=== PATIENT | female | born 1970 | race Caucasian/White ===

== ENCOUNTER 2025-02-23 21:49 | Emergency (ER) | payer MEDICARE, BC, MEDICAID, SELFPAY ==
--- OUTSIDE RECORDS SUMMARY | 2025-02-20 11:40 | XMS_ITS | Encounter Summary ---
Author Organization [employer] Address [address] [place] [address] Care Team Providers Care Supervisor Airplane Flight Attendant Name Role Phone Jo Alcocer Primary Care Provider [phone] Encounter Details Date Type Department Care Team (Latest Contact Info) Description 02/20/2025 11:40 AM EST [facility] Visit [facility] [place] [address] [place] [phone] Priyanka Buenrostro MD [address] [place] [address] Type 1 diabetes mellitus with diabetic polyneuropathy (CMS/HCC V24, CMS/HCC V28) (Primary Dx) Social History Tobacco Use Types Packs/Day Years Used Date Smoking Tobacco: Former Cigarettes 1 0.5 0 06/07/2021 - 12/07/2021 Smokeless Tobacco: Never Alcohol Use Standard Drinks/Week Comments Never 0 (1 standard drink = 0.6 oz pur e alcohol) Interpersonal Safety Answer Date Record ed Physical Abuse Unrecognized value 11/27/2024 Verbal Abuse Unrecognized value 11/27/2024 Comments Unknown Sex and Gender Information Value Date Recorded Sex Assigned at Female 05/11/2024 9:27 PM EST Legal Sex Female 10:19 AM EST Gender Identity Female 05/11/2024 9:27 PM EST Sexual Orientation Straight 05/11/2024 9: 27 PM EST documented as of this encounter Plan of Treatment Upcoming Encounters Date Type Department Care Team (Late Contact Info) Description 03/21/2025 10:30 AM EST Office Visit Rehabilitation Medicine - [place] [address] [place] [phone] Gisel Garcia MD [address] [place] [address] 04/03/2025 11:00 AM EST Office Visit Internal Medicine - [place] [address] [place] [phone] Jo Alcocer PA [address] [place], [place] [id number] 04/13/2025 11:00 AM EST Appointment [facility] [address] [place] [phone] Levon Cuevas MD [address] [facility] [address] [place] [address] 05/05/2025 11:40 AM EST [facility] - [address] [place] [phone] Priyanka Buenrostro MD [address] [place] [address] 06/29/2025 11:25 AM EDT Office Visit Pulmonology - [place] [address] [facility] [address] [place] [phone] Tanya Pineda, DAHIANA [address] [place] [address] documented as of this encounter Goals Goal Patient Goal Type Associated Problems Recent Progress Patient-Stated? Author Autogenera juanito Goal Care Plan Autogenerated Problem No Janice Irby documented as of this encounter Visit Diagnoses Diagnosis Type 1 diabetes mellitus with diabetic polyneuropathy ([facility] V24, [facility] V28)- Primary documented in this encounter Additional Health Concerns Active Problems Noted Date Diagnosed Date Autogenerated Problem 12/06/2024 Assessment Noted Time PHQ-9 Depression Total Score: 21 025 10:50 AM EDT A fall risk assessment has been complete d for the patient 09/08/2024 10:45 AM EDT documented as of this encounter Care Teams Supervisor Airplane Flight Attendant Relationship Specialty Start Date End Date Jo Alcocer PA [address] [place] [address] PCP - General Family Medicine 04/14/24 documented as of this encounter
[2025-02-23 21:57] VITALS: BP 119/57; PULSE 87; RESP 20; TEMP 36.4; O2SAT 97; BMI 21.1
[2025-02-23 21:58] VITALS: BP 136/72; PULSE 84; O2SAT 99
[2025-02-23 22:17] LABS: MANUAL DIFF FLAG NO
[2025-02-23 22:19] LABS: Hematocrit 35.6 % (37.0-47.0); Hemoglobin 11.7 g/dl (12.0-16.0); Imm Gran Abs Auto 0.01 X10*3/uL (0.00-0.03); Imm Gran Pct Auto 0.2 % (0.0-0.4); Lymphocytes Absolute Auto 2.5 X10*3/uL (1.2-4.9); Mean Corpuscular HGB Conc 32.9 g/dl (31.0-35.0); Mean Corpuscular Hemoglobin 31.5 pg (27.0-33.0); Mean Corpuscular Volume 95.7 fL (80.0-98.0); NRBC Abs Auto 0.000 X10*3/uL (0.0-0.012); NRBC Pct Auto 0.0 /100WBC (0.0-0.2); Platelet Count 186 X10*3/uL (160-400); Red Blood Count 3.72 X10*6/uL (4.20-5.50); White Blood Count 5.7 X10*3/uL (4.8-10.8)
[2025-02-23 22:32] LABS: Alanine Aminotransferase 30 U/L (0-31); Albumin Level 4.0 g/dL (3.5-5.0); Alkaline Phosphatase 81 U/L (39-117); Anion Gap 13 (12-20); Aspartate Amino Transferase 36 U/L (5-31); Blood Urea Nitrogen 15 mg/dL (9-16); Calcium 8.9 mg/dL (8.4-10.2); Carbon Dioxide 32 mmol/L (22-29); Chloride 101 mmol/L (96-108); Creatinine Clr Calc Pharmacy 69.6; Estimated Glomerular Filt Rate > 60; Potassium 4.3 mmol/L (3.3-5.1); Sodium 142 mmol/L (135-145); Total Protein 6.4 g/dL (6.5-8.0)
[2025-02-23 22:39] LABS: NT Pro B Type Natriuretic Pept 535.1 pg/mL (<300)
[2025-02-24 00:41] VITALS: BP 134/62; PULSE 87; RESP 18; O2SAT 98
--- NOTE | 2025-02-24 02:15 | ED_ITS ---
HPI - Extremity Problem General Chief complaint: Extremity Problem Stated complaint: Bilat leg pain & swelling Time Seen by Provider: 02/24/25 02:13 Source: patient and EMS Mode of arrival: EMS Limitations: no limitations History of Present Illness ED Provider: William GUPTA HPI Narrative: The patient is a 55-year-old female presenting to the Emergency Department for progressively worsening bilateral lower-extremity swelling that began approximately one week ago. She reports the swelling was initially mild but ?blew up? overnight and has persisted despite leg elevation on an incline wedge while sleeping. She was evaluated yesterday at [facility], who advised her to re-initiate oral furosemide, which she had not taken in the last year. Patient reports a prescription was sent to her pharmacy but she used left over furosemide that she had in her house from 1 year ago. The patient states she has had no improvement from the oral Lasix over the last 24 hours, and presents to the ED stating that in the past she required IV Lasix and admission for similar episodes. Past cardiac history includes congestive heart failure secondary to mitral-valve regurgitation; she follows with cardiology at [facility] in [place]. She has been using the herbal supplement moringa for the past year to control her swelling as she is concerned Lasix nephrotoxicity. Patient reports switching from Lasix to Nakia was a care plan changed she discussed with her primary care nurse practitioner in [place]. The patient reports over the past week she has also been experiencing intermittent slight sharp left upper chest pain that typically improves with a baby aspirin, intermittent bilateral flank/side abdominal pain, and recent positive urinary ketones (patient checks at home). The patient reports feeling generally unwell and that everything seems not right. Related Data Allergies Allergy/AdvReac Type Severity Reaction Status Date / Time No Known Allergies Allergy Verified 02/23/25 22:01 Review of Systems 2 Review of Systems: Yes all other systems are reviewed and are negative [facility] Social History Social History Smoked in Last 30 Days: No Use of substances other than those prescribed or required for medical reasons: Yes Substance Use Type: Marijuana Advance Directives: No Advance Directives Information Provided: Yes Patient : No Physical Exam 2 Vital Signs: Vital Signs: Last Vital Signs Temp 97.6 F 02/23/25 21:57 Pulse 76 02/24/25 03:30 Resp 18 02/24/25 03:30 BP 134/66 02/24/25 03:30 Pulse Ox 98 02/24/25 03:30 O2 Del Method Room Air 02/24/25 03:30 BMI result Body Mass Index 21.1 CONSTITUTIONAL: The patient appears non-toxic, well nourished and in no acute distress. Vital signs as documented. HEAD: Atraumatic, normocephalic. EYES: EOMs grossly intact, pupils equal, conjunctiva clear, no exudate. ENT: Nares patent, no discharge. Airway patent, no audible stridor, visible mucosa is pink and moist without noted lesions. NECK: Trachea is midline, no obvious masses or gross abnormalities. CHEST: Symmetric movement, normal appearance. LUNGS: LS present and CTAB, no w/r/r. Non-labored work of breathing. CARDIAC: Regular Rhythm, S1/S2 appreciated, no murmurs, rubs or gallops. ABDOMEN: Abdomen soft and non-tender x4 quadrants, no palpable masses or organomegaly. : Deferred. EXTREMITIES: Normal tone, moves all extremities spontaneously without reported pain. There is 2+ pitting edema noted to the bilateral lower extremities to level of the proximal calf, no overlying erythema or warmth, no open injury, area of edema is tender, patient grimaces with palpation. No obvious acute injury or deformity noted. NEURO: Alert and oriented x3, CN II-XII appear grossly intact. Cerebellar Functioning grossly intact. No obvious sensory or motor deficits. Speech clear and appropriate. PSYCH: normal affect, appropriate eye contact, fluid speech, with appropriate response to questioning. No reported suicidality or homicidality. SKIN: Warm, dry, color appropriate, normal turgor. No rashes noted. Medications Administered Discontinued Medications Generic Name Dose Route Start Last Admin Trade Name Freq PRN Reason Stop Dose Admin Furosemide 40 mg 02/24/25 03:14 02/24/25 03:31 Furosemide 40 Mg/4 Ml Vial IVPUSH 02/24/25 03:15 40 mg ONCE ONE Administration Protocol Medical Decision Making Medical Decision Making MDM Narrative: 3:16 AM 02/24/2025 (Jose David GUPTA): The patient is a 55-year-old female presenting to the Emergency Department for progressively worsening bilateral lower-extremity swelling that began approximately one week ago. She reports the swelling was initially mild but ?blew up? overnight and has persisted despite leg elevation on an incline wedge while sleeping. She was evaluated yesterday at [facility], who advised her to re-initiate oral furosemide, which she had not taken in the last year. Patient reports a prescription was sent to her pharmacy but she used left over furosemide that she had in her house from 1 year ago. The patient states she has had no improvement from the oral Lasix over the last 24 hours, and presents to the ED stating that in the past she required IV Lasix and admission for similar episodes. Past cardiac history includes congestive heart failure secondary to mitral-valve regurgitation; she follows with cardiology at [facility] in [place]. She has been using the herbal supplement moringa for the past year to control her swelling as she is concerned Lasix nephrotoxicity. Patient reports switching from Lasix to Nakia was a care plan changed she discussed with her primary care nurse practitioner in [place]. The patient reports over the past week she has also been experiencing intermittent slight sharp left upper chest pain that typically improves with a baby aspirin, intermittent bilateral flank/side abdominal pain, and recent positive urinary ketones (patient checks at home). The patient reports feeling generally unwell and that everything seems not right. On exam patient has 2+ bilateral pitting edema, no overlying erythema or warmth. No asymmetric swelling. Lung sounds clear to auscultation throughout, no rales. The patient is labs demonstrate no leukocytosis, significant anemia, electrolyte abnormality, or ARTURO. The patient's proBNP is 535, no old for comparison. The exact cause of the patient's acute change in swelling is not entirely clear, however due to report of intermittent chest pain we will obtain an EKG and troponin. Additionally we will treat with IV Lasix and reassess. 4:46 AM 02/24/2025 (Jose David GUPTA): Patient's EKG is nonischemic, shows sinus rhythm with a rate of 74, no evidence of acute ischemia, no ST elevation, no ectopy. QTC 446. The patient's troponin is negative. The patient was treated with IV Lasix. Patient has been ambulating through the ED with a steady gait with the assistance of a walker, which she uses at home. At this time patient is normotensive, without tachycardia, tachypnea, hypoxia, fever, adventitious lung sounds, or laboratory evaluation indicating need for admission. The patient took her furosemide yesterday that was from last year, patient will be discharged with education to fill new prescription from [facility] and take the new tablets of furosemide for better effectiveness. Patient will be discharged with instructions to follow up with PCP for continued management of her edema. Admission/Observation Consideration of admission/observation: Escalation of care including admission/observation considered Lab Data MDM Lab Attestation statement: I reviewed the patient's lab results. 02/23/25 22:12 02/23/25 22:12 Labs: Lab Results 02/23/25 02/24/25 Range/Units 22:12 03:26 WBC 5.7 (4.8-10.8) X10*3/uL RBC 3.72 L (4.20-5.50) X10*6/uL Hgb 11.7 L (12.0-16.0) g/dl Hct 35.6 L (37.0-47.0) % MCV 95.7 (80.0-98.0) fL MCH 31.5 (27.0-33.0) pg MCHC 32.9 (31.0-35.0) g/dl RDW 13.5 (11.0-16.0) % Plt Count 186 (160-400) X10*3/uL MPV 11.6 (9.4-12.3) fL Immature Gran % (Auto) 0.2 (0.0-0.4) % Neut % (Auto) 47.0 (45-73) % Lymph % (Auto) 44.0 H (20-40) % Sunflower % (Auto) 5.3 (2-11) % Eos % (Auto) 2.6 (0-4) % Baso % (Auto) 0.9 (0-2) % Lymph # (Auto) 2.5 (1.2-4.9) X10*3/uL Sunflower # (Auto) 0.3 (0.1-1.2) X10*3/uL Eos # (Auto) 0.2 (0.0-0.4) X10*3/uL Baso # (Auto) 0.1 (0.0-0.2) X10*3/uL Abs Immat Gran (auto) 0.01 (0.00-0.03) X10*3/uL Absolute Neuts (auto) 2.7 (2.0-8.3) x10*3/uL Absolute Nucleated RBC 0.000 (0.0-0.012) X10*3/uL Nucleated RBC % (auto) 0.0 (0.0-0.2) /100WBC Sodium 142 (135-145) mmol/L Potassium 4.3 (3.3-5.1) mmol/L Chloride 101 (96-108) mmol/L Carbon Dioxide 32 H (22-29) mmol/L Anion Gap 13 (12-20) BUN 15 (9-16) mg/dL Creatinine 0.84 (0.5-1.4) mg/dL Estim Creat Clear Calc 69.6 Estimated GFR > 60 Random Glucose 193 H (60-115) mg/dL Calcium 8.9 (8.4-10.2) mg/dL Total Bilirubin 0.4 (0.0-1.0) mg/dL AST 36 H (5-31) U/L ALT 30 (0-31) U/L Alkaline Phosphatase 81 (39-117) U/L Troponin I High Sens 12.6 (<3.5-17.0) ng/L NT-Pro-B Natriuret Pep 535.1 H (<300) pg/mL Total Protein 6.4 L (6.5-8.0) g/dL Albumin 4.0 (3.5-5.0) g/dL Independent Interpretation I performed an independent interpretation of an: EKG (Sinus rhythm with a rate of 74, no evidence of acute ischemia, no ST elevation, no ectopy. QTC 446. There is no old for comparison.) External Record Review External record reviewed: Outpatient record Discharge Plan Discharge Clinical Impression: Lower extremity edema Patient Disposition: Home, Self-Care Instructions: Leg Edema (ED) Additional Instructions: Thank you for choosing [facility]'s Emergency Department for your care today. Thankfully your laboratory evaluation, EKG, cardiac enzymes, vital signs, and exam today are all reassuring. There was no evidence of retained fluid in your lungs. At this time there is no indication for admission to the hospital or continued ED observation, and it is safe to discharge you home. Your lower extremity edema was treated in the ED with IV furosemide (Lasix). Your swelling did not improve after taking your old furosemide tablets as instructed by [facility], it is very important that you fill the new prescription provided to you by [facility] and take 40 mg of new furosemide tablets daily for the next 3 days, instead of taking the old tablets in your home, to optimize effectiveness of the medication. After those 3 days please begin taking 20 mg Lasix daily. Please elevate your legs above heart level when sleeping, and for greater than half the day when awake. It is extremely important that you call to schedule an appointment to follow up with your primary care provider for re-evaluation of your swelling, and additional management of your furosemide. Please follow up with your primary care physician for re-evaluation, additional management of your symptoms, and continued preventative care. If you do not have a primary care physician, please call the [facility] at [phone] to establish a new primary care physician. While waiting to establish your new primary care physician, you can call our Walk[facility] at [phone] for non-emergency needs. Please return to the emergency department if you develop a severe or sudden change in your symptoms, a fever over 100.4 that does not improve with Tylenol or Ibuprofen, recurrent vomiting, or any other new or worsening symptoms or concerns. Print Language: Irish
--- NOTE | 2025-02-24 03:09 | PC.NURSE ---
pt ambulated to the bathroom with a slow and steady gait
--- NOTE | 2025-02-24 03:14 | ECG_ITS ---
Test Reason : FLUID RETENTION Blood Pressure : */* mmHG Vent. Rate : 74 BPM Atrial Rate : 74 BPM P-R Int : 122 ms QRS Dur : 78 ms QT Int : 402 ms P-R-T Axes : 63 74 63 degrees QTcB Int : 446 ms Normal sinus rhythm Normal ECG No previous ECGs available Referred By: William Gibson Electronically Signed By: Raza Appiah
[2025-02-24 03:30] VITALS: BP 134/66; PULSE 76; RESP 18; O2SAT 98
[2025-02-24] MEDS: Furosemide 40 MG/4 ML VIAL IVPUSH (03:31)
[2025-02-24 03:48] LABS: Troponin-I High Sensitivity 12.6 ng/L (<3.5-17.0)
--- OUTSIDE RECORDS SUMMARY | 2025-02-24 04:14 | XMS_ITS ---
Author Name [facility] Organization Unknown Results Test Name/Text Value Interpretation Date Range Source Potassium SerPl-sCnc 3.8 mmol/L 09/08/2024 3.5 - 5.1 [facility] BUN/Creat SerPl 16.0 09/08/2024 12 - 20 [facility] Glucose SerPl-mCnc 167.0 mg/dL Above high normal 09/08/2024 70 - 99 [facility] BUN SerPl-mCnc 16.0 mg/dL 09/08/2024 7 - 17 [facility] Chloride SerPl-sCnc 96.0 mmol/L Below low normal 09/08/2024 98 - 107 [facility] ALP SerPl-cCnc 106.0 unit/L Above high normal 09/08/2024 34 - 104 [facility] Sodium SerPl-sCnc 138.0 mmol/L 09/08/2024 135 - 14 5 [facility] Prot SerPl-mCnc 6.6 g/dL 09/08/2024 6.4 - 8.5 [facility] eGFRcr SerPlBld CKD-EPI 2020 68.0 mL/min/1.73m2 09/08/2024 - [facility] AST SerPl-cCnc 22.0 unit/L 09/08/2024 5 - 40 [facility] CO2 SerPl-sCnc 34.0 mmol/L Above high normal 09/08/2024 24 - 32 [facility] Bilirub SerPl-mCnc 0.4 mg/dL 09/08/2024 0.3 - 1 [facility] Calcium SerPl-mCnc 8.9 mg/dL 09/08/2024 8.4 - 10.2 [facility] ALT SerPl-cCnc 14.0 unit/L 09/08/2024 7 - 52 [facility] Creat SerPl-mCnc 1.0 mg/dL 09/08/2024 0.5 - 1 [facility] Albumin SerPl-mCnc 4.0 g/dL 09/08/2024 3.5 - 5 [facility] Anion Gap SerPl Calc-sCnc 8.0 09/08/2024 5 - 14 [facility] Color Ur Yellow 09/08/2024 - [facility] N Nitrite Ur Ql Negative 09/08/2024 - [facility] Clarity Ur Clear 09/08/2024 - [facility] Ketones Ur-mCnc Negative 09/08/2024 - [facility] pH Ur 5.0 pH Abnormal 09/08/2024 5 - 8 [facility] N Sp Gr Ur 1.01 09/08/2024 1.005 - 1.03 [facility] Leukocyte esterase Ur Ql Strip Trace Abnormal 09/08/2024 - [facility] Prot Ur Strip-mCnc Negative 09/08/2024 - [facility] Hgb Ur Ql Negative 09/08/2024 - [facility] N Glucose Ur Ql Negative 09/08/2024 - [facility] VLDLc SerPl Calc-mCnc 24.6 mg/dL Normal 06/03/2024 [facility] LDLc SerPl Calc-mCnc 44.0 mg/dL Below low normal 06/03/2024 50 - 130 [facility] Trigl SerPl-mCnc 123.0 mg/dL Normal 06/03/2024 - 150 [facility] Cholest SerPl-mCnc 114.0 mg/dL Normal 06/03/2024 0 - 200 [facility] HDLc SerPl-mCnc 45.0 mg/dL Normal 06/03/2024 37 - 92 [facility] Potassium SerPl-sCnc 4.0 mmol/L Normal 04/28/2024 3.5 - 5.1 [facility] Bilirub SerPl-mCnc 0.7 mg/dL Normal 04/28/2024 0.3 - 1 [facility] Calcium SerPl-mCnc 9.5 mg/dL Normal 04/28/2024 8.4 - 10.2 [facility] ALP SerPl-cCnc 114.0 unit/L Above high normal 04/28/2024 34 - 104 [facility] Albumin SerPl-mCnc 4.0 g/dL Normal 04/28/2024 3.5 - 5 [facility] Sodium SerPl-sCnc 142.0 mmol/L Normal 04/28/2024 135 - 14 5 [facility] AST SerPl-cCnc 23.0 unit/L Normal 04/28/2024 5 - 40 [facility] eGFRcr SerPlBld CKD-EPI 2020 68.0 mL/min/1.73m2 Normal 04/28/2024 - [facility] CO2 SerPl-sCnc 32.0 mmol/L Normal 04/28/2024 24 - 32 [facility] Creat SerPl-mCnc 1.0 mg/dL Normal 04/28/2024 0.5 - 1 [facility] Chloride SerPl-sCnc 101.0 mmol/L Normal 04/28/2024 98 - 107 [facility] Prot SerPl-mCnc 6.3 g/dL Below low normal 04/28/2024 6.4 - 8.5 [facility] Anion Gap SerPl-sCnc 9.0 Normal 04/28/2024 5 - 14 [facility] Glucose SerPl-mCnc 92.0 mg/dL Normal 04/28/2024 70 - 99 [facility] BUN/Creat SerPl 28.0 Above high normal 04/28/2024 12 - 20 [facility] ALT SerPl-cCnc 16.0 unit/L Normal 04/28/2024 7 - 52 [facility] BUN SerPl-mCnc 28.0 mg/dL Above high normal 04/28/2024 7 - 1 7 [facility] Basophils # Bld Auto 0.0 K/mcL Normal 04/28/2024 0 - 0.2 [facility] Lymphocytes # Bld Auto 3.4 K/mcL Above high normal 04/28/2024 1 - 3.2 [facility] Eosinophil # Bld Auto 0.3 K/mcL Normal 04/28/2024 0 - 0.5 [facility] Neutrophils/leuk NFr Bld Auto 35.6 % Below low normal 04/28/2024 44 - 74 [facility] PMV Bld Auto 10.9 FL Normal 04/28/2024 7.4 - 11.4 [facility] Basophils/leuk NFr Bld Auto 0.7 % Normal 04/28/2024 0 - 2 [facility] MCV RBC Auto 91.0 FL Normal 04/28/2024 78 - 100 [facility] Eosinophil/leuk NFr Bld Auto 3.9 % Normal 04/28/2024 0 - 6 [facility] RBC # Bld Auto 3.49 M/mcL Below low normal 04/28/2024 4.2 - 5.4 [facility] Hgb Bld-mCnc 10.8 g/dL Below low normal 04/28/2024 12.5 - 16 [facility] Hct VFr Bld Auto 31.7 % Below low normal 04/28/2024 37 - 47 [facility] Monocytes # Bld Auto 0.5 K/mcL Normal 04/28/2024 0 - 0.8 [facility] WBC # Bld Auto 6.6 K/mcL Normal 04/28/2024 4 - 10.5 [facility] RDW RBC Auto-Rto 14.2 % Normal 04/28/2024 12.1 - 16.2 [facility] MCH RBC Qn Auto 31.0 pcg Normal 04/28/2024 25 - 33 [facility] Lymphocytes/leuk NFr Bld Auto 51.8 % Above high normal 04/28/2024 20 - 48 [facility] Platelet # Bld Auto 259.0 K/mcL Normal 04/28/2024 150 - 450 [facility] Monocytes/leuk NFr Bld Auto 8.0 % Normal 04/28/2024 2 - 12 [facility] MCHC RBC Auto-mCnc 34.1 g/dL Normal 04/28/2024 32 - 36 [facility] Neutrophils # Bld Auto 2.4 K/mcL Normal 04/28/2024 1.8 - 7.8 [facility] History of Medication Use Medication Directions Dispensed Refills Start Date End Date Stat us insulin syringe,safety needle (BD SafetyGlide Insulin Syringe) 0.3 mL 31 gauge x 5/16 syringe 1 EA if needed (to inject insulin). Use to inject 1-4 times daily as directed 02/17/2025 active fluticasone furoate-vilanteroL (Breo Ellipta) 200-25 mcg/dose inhaler Inhale 1 puff by mouth 1 (one) time each day. 12/30/2024 active tiotropium (Spiriva Respimat) 2.5 mcg/actuation inhalation spray Inhale 2 puffs by mouth 1 (one) time each day. 12/30/2024 active glucagon 0.5 mg/0.1 mL auto-injector Inject 0.5 mg under the skin 1 (one) time if needed (Inject contents of pen subcutaneously in the upper arms, thighs, or buttocks for severe hypoglycemia, may repeat in 15 minutes as needed.) for up to 1 dose. 11/28/2024 active glucagon 0.5 mg/0.1 mL auto-injector Inject 0.5 mg under the skin 1 (one) time if needed (Inject contents of pen subcutaneously in the upper arms, thighs, or buttocks for severe hypoglycemia, may repeat in 15 minutes as needed.) for up to 1 dose. 11/28/2024 active glucose 4 gram chewable tablet Chew 4 tablets (16 g total) if needed for low blood sugar. 11/28/2024 active glucose 4 gram chewable tablet Chew 4 tablets (16 g total) if needed for low blood sugar. 11/28/2024 active varenicline tartrate (CHANTIX) 1 mg tablet TAKE 1 TABLET BY MOUTH 2 TIMES DAILY AFTER BREAKFAST AND DINNER WITH FULL GLASS OF WATER. 11/22/2024 active lidocaine (PF) 10 mg/mL (1 %) injection solution Take 2 mL by injection route. 10/26/2024 active triamcinolone acetonide 40 mg/mL suspension for injection Take 80 mg by injection route. 10/26/2024 active loteprednol (LOTEMAX) 0.5 % ophthalmic suspension 09/05/2024 active loteprednol (LOTEMAX) 0.5 % ophthalmic suspension 09/05/2024 active varenicline tartrate (CHANTIX) 1 mg tablet TAKE 1 TABLET BY MOUTH 2 TIMES DAILY AFTER BREAKFAST AND DINNER WITH FULL GLASS OF WATER. 08/21/2024 active HumaLOG U-100 Insulin 100 unit/mL injection by Other route. 08/16/2024 active HumaLOG U-100 Insulin 100 unit/mL injection by Other route. 08/16/2024 active albuterol HFA (PROAIR HFA ; PROVENTIL HFA ; VENTOLIN HFA) 90 mcg/actuation inhaler INHALE 2 PUFFS BY MOUTH EVERY 6 HOURS NEEDED FOR WHEEZE 08/13/2024 active albuterol HFA (PROAIR HFA ; PROVENTIL HFA ; VENTOLIN HFA) 90 mcg/actuation inhaler INHALE 2 PUFFS BY MOUTH EVERY 6 HOURS NEEDED FOR WHEEZE 08/13/2024 active promethazine (PHENERGAN) 25 mg tablet TAKE 1 TABLET (25 MG TOTAL) BY MOUTH EVERY 8 (EIGHT) HOURS IF NEEDED FOR NAUSEA. 08/12/2024 active food supplemt, lactose-reduced (Boost) 0.04 gram- 1 kcal/mL liquid Take 1 Bottle by mouth 1 (one) time each day. 05/05/2024 active nut.tx.gluc intol,lf,soy-fiber (Glucerna 1.5 Bijan) 0.08-1.5 gram-kcal/mL liquid Take 1 Bottle by mouth 1 (one) time each day. 05/05/2024 active umeclidinium (Incruse Ellipta) 62.5 mcg/actuation inhalation Inhale 1 puff by mouth 1 (one) time each day. 05/03/2024 active amoxicillin-clavula dyana (AUGMENTIN) 875-125 mg per tablet Take 1 tablet by mouth 2 (two) times a day for 7 days. 04/28/2024 active food supplemt, lactose-reduced (Boost High Protein) 0.06 gram- 1 kcal/mL liquid Take 1 Dose by mouth 2 (two) times a day if needed (for nutritional supplementation). 04/28/2024 active fluticasone propionate (FLONASE) 50 mcg/actuation nasal spray ADMINISTER 2 SPRAYS INTO EACH NOSTRIL 2 (TWO) TIMES A DAY. SHAKE GENTLY. BEFORE FIRST USE, PRIME PUMP. AFTER USE, CLEAN TIP AND REPLACE CAP. 03/31/2024 active omeprazole (PriLOSEC) [address] capsule Take 1 capsule (20 mg total) by mouth 2 (two) times a day. Do not crush or chew. 03/23/2024 active omeprazole (PriLOSEC) [address] capsule Take 1 capsule (20 mg total) by mouth 2 (two) times a day. Do not crush or chew. 03/23/2024 active promethazine (PHENERGAN) 25 mg suppository Insert 1 suppository (25 mg total) into the rectum every 6 (six) hours if needed for nausea or vomiting. 03/23/2024 active promethazine (PHENERGAN) 25 mg suppository Insert 1 suppository (25 mg total) into the rectum every 6 (six) hours if needed for nausea or vomiting. 03/23/2024 active lisinopriL (PRINIVIL,ZESTRIL) 2.5 mg tablet TAKE ONE TABLET BY MOUTH DAILY AT 9 AM 02/29/2024 03/29/19 25 aborted albuterol HFA (PROAIR HFA ; PROVENTIL HFA ; VENTOLIN HFA) 90 mcg/actuation inhaler Inhale 2 puffs by mouth every 6 (six) hours if needed for wheezing. 02/17/2024 active fluticasone propionate (FLONASE) 50 mcg/actuation nasal spray Administer 2 sprays into each nostril 2 (two) times a day. Shake gently. Before first use, prime pump. After use, clean tip and replace cap. 02/17/2024 active ipratropium-albuter oL (DUONEB) 0.5-2.5 mg/3 mL nebulizer solution Take 3 mL by nebulization 4 (four) times a day. 02/17/2024 active tiotropium (Spiriva Respimat) 2.5 mcg/actuation inhalation spray Inhale 2 puffs by mouth 1 (one) time each day. 02/17/2024 active varenicline (CHANTIX) 1 mg tablet Take 1 tablet (1 mg total) by mouth 2 (two) times daily after breakfast and dinner. Take with full glass of water. 02/17/2024 active Sutab 1.479-0.188- 0.225 gram tablet TAKE 12 TABLETS BY MOUTH 2 (TWO) TIMES A DAY. 02/15/2024 active lidocaine (PF) 10 mg/mL (1 %) injection solution Take 2 mL by injection route. 01/14/2024 active triamcinolone acetonide 40 mg/mL suspension for injection Take 80 mg by injection route. 01/14/2024 active nicotine polacrilex (COMMIT) [address] 1 Lozenge inside cheek every 2 hours as needed for Smoking cessation (no more then 20pieces in 24 hours). Directions for Use: One piece every 1 to 2 hours with a maximum of 20 pieces per 24-hour period Do not chew or swallow; allow to dissolve slowly between cheek and gum (~20 to 30 minutes); 11/16/2023 03/29/19 25 aborted pregabalin (LYRICA) 300 mg capsule Take 1 capsule (300 mg total) by mouth at bedtime. 11/13/2023 active pregabalin (LYRICA) 300 mg capsule Take 1 capsule (300 mg total) by mouth at bedtime. 11/13/2023 active torsemide (DEMADEX) 20 mg tablet Take 1 Tablet by mouth daily for 360 days. 07/20/2023 active ferrous sulfate 325 mg (65 mg elemental iron) tablet Take 1 Tablet by mouth daily. 06/09/2023 active clotrimazole (LOTRIMIN) 1 % cream APPLY TWICE A DAY FOR 2 WEEKS 05/01/2023 03/29/19 25 aborted fluticasone furoate-vilanteroL (BREO ELLIPTA) 200-25 mcg/dose inhaler Inhale 1 puff by mouth 1 (one) time each day. 05/01/2023 active albuterol 2.5 mg /3 mL (0.083 %) nebulizer solution Take 1 Vial by nebulization every 6 hours as needed for Wheezing, Shortness of Breath or Cough for up to 180 days. 10/01/2022 active albuterol 2.5 mg /3 mL (0.083 %) nebulizer solution Take 1 Vial by nebulization every 6 hours as needed for Wheezing, Shortness of Breath or Cough for up to 180 days. 10/01/2022 active pravastatin (PRAVACHOL) 40 mg tablet Take 1 Tablet by mouth daily. 05/12/2022 active glucagon (Baqsimi) 3 mg/actuation nasal spray by Nasal route. 12/05/2021 active Glucagon HCl, rDNA, (GlucaGen HypoKit) 1 mg injection ADMINISTER 1 ML INTRAMUSCULARLY ONCE A DAY DIRECTED (GLUCAGON NOT COVERED BY INS) 03/21/2020 active methadone HCl (METHADONE, BULK, MISC) 74 mg. 09/22/2018 03/29/19 25 aborted insulin aspart (NovoLOG) 100 unit/mL injection See Instructions, 100 - 149 2 u 150 - 199 4 u 200 - 249 6 u 250 - 299 8 u 300 - 349 10 u 350 - 399 12 u, # 10 mL, 0 Refills, Maintenance, 04/29/17 12:38:04, Injection 04/29/2017 03/29/19 25 aborted amoxicillin 875 mg-potassium clavulanate 125 mg tablet TAKE 1 TABLET BY MOUTH TWICE A DAY FOR 7 DAYS 10/27/19 25 completed Dulera 200 mcg-5 mcg/actuation HFA aerosol inhaler INHALE 2 PUFFS BY MOUTH 2 TIMES A DAY 10/27/19 25 completed torsemide 20 mg tablet TAKE ONE TABLET BY MOUTH DAILY AT 9 AM 10/27/19 25 completed varenicline tartrate 1 mg tablet TAKE 1 TABLET BY MOUTH 2 TIMES DAILY AFTER BREAKFAST AND DINNER WITH FULL GLASS OF WATER. 10/27/19 25 completed amoxicillin 500 mg-potassium clavulanate 125 mg tablet TAKE 1 TABLET BY MOUTH THREE TIMES A DAY FOR 10 DAYS 01/14/20 24 completed amoxicillin 500 mg-potassium clavulanate 125 mg tablet TAKE 1 TABLET BY MOUTH THREE TIMES A DAY FOR 10 DAYS 01/14/20 24 completed cephalexin 500 mg capsule TAKE 1 CAPSULE BY MOUTH TWICE A DAY FOR 10 DAYS 01/14/20 24 completed cephalexin 500 mg capsule TAKE 1 CAPSULE BY MOUTH TWICE A DAY FOR 10 DAYS 01/14/20 24 completed nitrofurantoin monohydrate/macrocr ystals 100 mg capsule TAKE 1 CAPSULE BY MOUTH TWICE A DAY FOR 7 DAYS 01/14/20 24 completed nitrofurantoin monohydrate/macrocr ystals 100 mg capsule TAKE 1 CAPSULE BY MOUTH TWICE A DAY FOR 7 DAYS 01/14/20 24 completed potassium chloride ER 20 mEq tablet,extended release TAKE 1 TABLET BY MOUTH DAILY FOR 5 DAYS. DO NOT CRUSH OR CHEW WITH A FULL GLASS OF WATER WITH FOOD 01/14/20 24 completed potassium chloride ER 20 mEq tablet,extended release TAKE 1 TABLET BY MOUTH DAILY FOR 5 DAYS. DO NOT CRUSH OR CHEW WITH A FULL GLASS OF WATER WITH FOOD 01/14/20 24 completed pregabalin 300 mg capsule TAKE 1 CAPSULE BY MOUTH 3 TIMES PER WEEK 01/14/20 24 completed pregabalin 300 mg capsule TAKE 1 CAPSULE BY MOUTH 3 TIMES PER WEEK 01/14/20 24 completed triamcinolone acetonide 40 mg/mL suspension for injection active lidocaine (PF) 10 mg/mL (1 %) injection solution active triamcinolone acetonide 40 mg/mL suspension for injection active lidocaine (PF) 10 mg/mL (1 %) injection solution active albuterol sulfate HFA 90 mcg/actuation aerosol inhaler INHALE 2 PUFFS BY MOUTH EVERY 6 HOURS NEEDED FOR WHEEZE active ammonium lactate 12 % topical cream APPLY TO FEET TWICE A DAY active ammonium lactate 12 % topical cream active atorvastatin 80 mg tablet TAKE 1 TABLET BY MOUTH EVERY DAY active atorvastatin 80 mg tablet TAKE 1 TABLET BY MOUTH EVERY DAY active Baqsimi 3 mg/actuation nasal spray USE 1 SPRAY IN 1 NOSTRIL NEEDED FOR LOW BLOOD SUGAR active Baqsimi 3 mg/actuation nasal spray USE 1 SPRAY IN 1 NOSTRIL NEEDED FOR LOW BLOOD SUGAR active Breo Ellipta 200 mcg-25 mcg/dose powder for inhalation INHALE 1 PUFF BY MOUTH 1 (ONE) TIME EACH DAY. active Breo Ellipta 200 mcg-25 mcg/dose powder for inhalation INHALE 1 PUFF BY MOUTH INTO THE LUNGS DAILY active cefuroxime axetil 500 mg tablet TAKE 1 TABLET BY MOUTH TWICE A DAY FOR 10 DAYS active cefuroxime axetil 500 mg tablet TAKE 1 TABLET BY MOUTH TWICE A DAY FOR 10 DAYS active clindamycin 1 % lotion APPLY TO AFFECTED AREAS DAILY AFTER BENZOYL PEROXIDE WASH active clotrimazole 1 % topical cream APPLY TWICE A DAY FOR 2 WEEKS active clotrimazole 1 % topical cream APPLY TWICE A DAY FOR 2 WEEKS active doxycycline monohydrate 50 mg tablet TAKE 1 TABLET BY MOUTH EVERY DAY WITH FOOD active ferrous sulfate 325 mg (65 mg iron) tablet TAKE 1 TABLET BY MOUTH EVERY DAY active ferrous sulfate 325 mg (65 mg iron) tablet TAKE 1 TABLET BY MOUTH EVERY DAY active ferrous sulfate 325 mg (65 mg iron) tablet,delayed release TAKE 1 TABLET BY MOUTH EVERY DAY active ferrous sulfate 325 mg (65 mg iron) tablet,delayed release TAKE 1 TABLET BY MOUTH EVERY DAY active fluticasone propionate 50 mcg/actuation nasal spray,suspension PLEASE SEE ATTACHED FOR DETAILED DIRECTIONS active fluticasone propionate 50 mcg/actuation nasal spray,suspension INSTILL 2 SPRAYS IN EACH NOSTRIL DAILY active [employer] 3 [place] USE WITH SENSORS TO CHECK BLOOD SUGAR active furosemide 20 mg tablet TAKE 1 & 1/2 TABLETS BY MOUTH DAILY active furosemide 20 mg tablet TAKE 1 & 1/2 TABLETS BY MOUTH DAILY active furosemide 40 mg tablet TAKE 1 TABLET BY MOUTH EVERY DAY active furosemide 40 mg tablet TAKE 1 TABLET BY MOUTH EVERY DAY active griseofulvin ultramicrosize 125 mg tablet active griseofulvin ultramicrosize 125 mg tablet active Humalog U-100 Insulin 100 unit/mL subcutaneous solution USE 60 UNITS DAILY VIA INSULIN PUMP active Incruse Ellipta 62.5 mcg/actuation powder for inhalation INHALE 1 PUFF BY MOUTH 1 (ONE) TIME EACH DAY. active ipratropium 0.5 mg-albuterol 3 mg (2.5 mg base)/3 mL nebulization soln INHALE 3 ML BY NEBULIZATION 4 TIMES A DAY active isosorbide mononitrate ER 30 mg tablet,extended release 24 hr TAKE 1 TABLET BY MOUTH EVERY DAY active isosorbide mononitrate ER 30 mg tablet,extended release 24 hr TAKE 1 TABLET BY MOUTH EVERY DAY active lisinopril 2.5 mg tablet TAKE ONE TABLET BY MOUTH DAILY AT 9 AM active lisinopril 2.5 mg tablet TAKE ONE TABLET BY MOUTH DAILY AT 9 AM active loteprednol etabonate 0.5 % eye drops,suspension PALCE 1 DROP INTO BOTH EYES TWICE A DAY FOR 1 MONTH active metoprolol succinate ER 25 mg tablet,extended release 24 hr TAKE 1/2 TABLET BY MOUTH 2 TIMES DAILY. active metoprolol succinate ER 25 mg tablet,extended release 24 hr TAKE 1/2 TABLET BY MOUTH 2 TIMES DAILY. active metoprolol tartrate 25 mg tablet TAKE 1/2 TABLET BY MOUTH TWICE A DAY active metoprolol tartrate 25 mg tablet TAKE 1/2 TABLET BY MOUTH TWICE A DAY active minoxidil 2.5 mg tablet TAKE 1/2 TABLET BY MOUTH EVERY DAY active Novolog U-100 Insulin aspart 100 unit/mL subcutaneous solution INFUSE 60 UNITS DAILY WITH INSULIN PUMP active Novolog U-100 Insulin aspart 100 unit/mL subcutaneous solution INFUSE 60 UNITS DAILY WITH INSULIN PUMP active omeprazole 20 mg capsule,delayed release TAKE ONE CAPSULE BY MOUTH TWICE DAILY @9AM-5PM NEED APPOINTMENT FOR FUTHER REFILLS active omeprazole 20 mg capsule,delayed release TAKE 1 CAPSULE (20 MG TOTAL) BY MOUTH 2 (TWO) TIMES A DAY. DO NOT CRUSH OR CHEW. active ondansetron HCl 4 mg tablet TAKE 1 TABLET BY MOUTH 3 TIMES A DAY. active potassium chloride ER 20 mEq tablet,extended release(part/cryst) TAKE ONE TABLET BY MOUTH DAILY AT 9 AM active potassium chloride ER 20 mEq tablet,extended release(part/cryst) TAKE ONE TABLET BY MOUTH DAILY AT 9 AM active pravastatin 40 mg tablet TAKE ONE TABLET BY MOUTH DAILY AT 5 PM active pravastatin 40 mg tablet TAKE ONE TABLET BY MOUTH DAILY AT 5 PM active pregabalin 150 mg capsule TAKE 1 CAPSULE BY MOUTH TWICE A DAY active pregabalin 150 mg capsule TAKE 1 CAPSULE BY MOUTH TWICE A DAY active promethazine 25 mg tablet TAKE 1 TABLET (25 MG TOTAL) BY MOUTH EVERY 8 (EIGHT) HOURS IF NEEDED FOR NAUSEA. active promethazine 25 mg tablet TAKE ONE TABLET BY MOUTH THREE TIMES DAILY NEEDED NEED APPOINTMENT FOR MORE REFILLS active Spiriva Respimat 2.5 mcg/actuation solution for inhalation INHALE TWO PUFFS INTO THE LUNGS DAILY active Spiriva Respimat 2.5 mcg/actuation solution for inhalation INHALE 2 PUFFS BY MOUTH 1 (ONE) TIME EACH DAY. active torsemide 20 mg tablet TAKE ONE TABLET BY MOUTH DAILY AT 9 AM active varenicline 1 mg tablet TAKE ONE TABLET BY MOUTH TWICE DAILY @9AM-5PM WITH FOOD active aspirin 81 mg capsule Take 81 mg by mouth 1 (one) time each day. active aspirin 81 mg capsule Take 81 mg by mouth 1 (one) time each day. active atorvastatin (LIPITOR) 80 mg tablet Take 1 tablet (80 mg total) by mouth at bedtime. active atorvastatin (LIPITOR) 80 mg tablet Take 1 tablet (80 mg total) by mouth at bedtime. active cycloSPORINE 0.05 % drops Administer into affected eye(s) every 12 (twelve) hours. active cycloSPORINE 0.05 % drops Administer into affected eye(s) every 12 (twelve) hours. active doxycycline (ADOXA) 50 mg tablet Take 1 tablet (50 mg total) by mouth 2 (two) times a day. Take with a full glass of water and do not lie down for at least 30 minutes after. active infusion set for insulin pump infusion set daily. active insulin regular (HumuLIN R,NovoLIN R) 100 UNIT/ML patient supplied pump 1 EA by continuous sub-Q infusn (via wearable injector) route continuously. active isosorbide mononitrate (IMDUR) 30 mg 24 hr tablet Take 1 tablet (30 mg total) by mouth 1 (one) time each day. Do not crush or chew. active isosorbide mononitrate (IMDUR) 30 mg 24 hr tablet Take 1 tablet (30 mg total) by mouth 1 (one) time each day. Do not crush or chew. active tiotropium (SPIRIVA) 18 mcg per inhalation capsule Place 1 capsule (18 mcg total) into inhaler and inhale 1 (one) time each day. active Problems Problem Status Onset Date Problem Type Date of Resolution Source Type 1 diabetes mellitus with diabetic polyneuropathy ([facility] V24, [facility] V28) active EncounterDiagnosisAct [facility] Hidradenitis suppurativa active 2012-07-07 ProblemAct [facility] Stage 2 moderate COPD by GOLD classification active 2020-01-18 ProblemAct [facility] DM (diabetes mellitus), 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 ProblemAct [facility] Hilar adenopathy active 2008-10-13 ProblemAct C [facility] Gastroparesis active 2008-04-25 [address] [facility] Cervical high risk human papillomavirus (HPV) DNA test positive active 2012-06-23 ProblemAct [facility] CKD (chronic kidney disease) stage 2, GFR 60-89 ml/min active 2024-04-06 ProblemAct [facility] Prolonged QT interval active 2018-09-01 ProblemAct [facility] Mitral regurgitation active 2011-05-23 ProblemAct [facility] Diabetic peripheral neuropathy active 2013-01-11 ProblemAct [facility] 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, bilateral active 2024-09-08 ProblemAct [facility] Dyslipidemia active 2021-12-05 ProblemAct [facility] Suicide attempt by multiple drug overdose active 2015-10-09 ProblemAct [facility] History of seizures active 2021-12-05 ProblemAct [facility] Nocturnal hypoxia active 2021-09-16 ProblemAct [facility] Depression active 2008-04-25 ProblemAct [facility] Posttraumatic stress disorder active 2013-07-25 ProblemAct [facility] Complex sleep apnea syndrome active 2021-11-23 ProblemAct [facility] Polycythemia, secondary active 2016-02-26 ProblemAct [facility] Bipolar affective disorder active 2010-06-14 ProblemAct [facility] Hypoglycemia active 2024-11-27 ProblemAct [facility] Osteoporosis active 2021-12-05 ProblemAct [facility] Type 1 diabetes mellitus with chronic kidney disease on chronic dialysis, with long-term current use of insulin active 2024-04-06 ProblemAct [facility] Osteoporosis active 2021-12-05 ProblemAct [facility] Dyslipidemia active 2021-12-05 ProblemAct [facility] Type 1 diabetes mellitus with chronic kidney disease on chronic dialysis, with long-term current use of insulin active 2024-04-06 ProblemAct [facility] Depression active 2008-04-25 ProblemAct [facility] Suicide attempt by multiple drug overdose active 2015-10-09 ProblemAct [facility] Hilar adenopathy active 2008-10-13 ProblemAct C [facility] Posttraumatic stress disorder active 2013-07-25 ProblemAct [facility] Complex sleep apnea syndrome active 2021-11-23 ProblemAct [facility] Nocturnal hypoxia active 2021-09-16 ProblemAct [facility] Polycythemia, secondary active 2016-02-26 ProblemAct [facility] Cervical high risk human papillomavirus (HPV) DNA test positive active 2012-06-23 ProblemAct [facility] Stage 2 moderate COPD by GOLD classification active 2020-01-18 ProblemAct [facility] 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, bilateral active 2024-09-08 ProblemAct [facility] Mitral regurgitation active 2011-05-23 ProblemAct [facility] CKD (chronic kidney disease) stage 2, GFR 60-89 ml/min active 2024-04-06 ProblemAct [facility] Hypoglycemia active 2024-11-27 ProblemAct [facility] History of seizures active 2021-12-05 ProblemAct [facility] 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, bilateral active 2024-09-08 ProblemAct [facility] Mitral regurgitation active 2011-05-23 ProblemAct [facility] Hypoglycemia active 2024-11-27 ProblemAct [facility] CKD (chronic kidney disease) stage 2, GFR 60-89 ml/min active 2024-04-06 ProblemAct [facility] History of seizures active 2021-12-05 ProblemAct [facility] Bipolar affective disorder active 2010-06-14 ProblemAct [facility] Hidradenitis suppurativa active 2012-07-07 ProblemAct [facility] Gastroparesis active 2008-04-25 ProblemAct [facility] DM (diabetes mellitus), 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 ProblemAct [facility] Prolonged QT interval active 2018-09-01 ProblemAct [facility] Diabetic peripheral neuropathy active 2013-01-11 ProblemAct [facility] Bilateral change in hearing active EncounterDiagnosisAct [facility] Immunizations Vaccine Date Source Lot Number Status Influenza Quadrivalent, 0.5m l, preservative free (Fluarix; FluLaval; Fluzone) ages 6mo and older (Afluria) 3yo and older 05/02/2023 [facility] [id number] completed Influenza Quadrivalent, 0.5m l, preservative free (Fluarix; FluLaval; Fluzone) ages 6mo and older (Afluria) 3yo and older 05/02/2023 [facility] [id number] completed Influenza Quadrivalent, 0.5m l, preservative free (Fluarix; FluLaval; Fluzone) ages 6mo and older (Afluria) 3yo and older 05/02/2023 [facility] [id number] completed Influenza Quadrivalent, 0.5m l, preservative free (Fluarix; FluLaval; Fluzone) ages 6mo and older (Afluria) 3yo and older 05/02/2023 [facility] [id number] completed Influenza Quadrivalent, 0.5m l, preservative free (Fluarix; FluLaval; Fluzone) ages 6mo and older (Afluria) 3yo and older 05/02/2023 [facility] [id number] completed Zoster recombinant (Shingrix ) 19yo and older 07/15/2022 [facility] [id number] completed Zoster recombinant (Shingrix ) 19yo and older 07/15/2022 [facility] [id number] completed Zoster recombinant (Shingrix ) 19yo and older 07/15/2022 [facility] [id number] completed Zoster recombinant (Shingrix ) 19yo and older 07/15/2022 [facility] [id number] completed Influenza Quadravalent, MDCK , 0.5ml, preservative free (Flucelvax) 6mo and older 12/11/2021 [id number] Influenza Quadravalent, MDCK , 0.5ml, preservative free (Flucelvax) 6mo and older 12/11/2021 [facility] [id number] completed Influenza Quadravalent, MDCK , 0.5ml, preservative free (Flucelvax) 6mo and older 12/11/2021 [facility] [id number] completed Influenza Quadravalent, MDCK , 0.5ml, preservative free (Flucelvax) 6mo and older 12/11/2021 [facility] [id number] completed Influenza Quadravalent, MDCK , 0.5ml, preservative free (Flucelvax) 6mo and older 04/11/2021 [facility] [id number] completed Influenza Quadravalent, MDCK , 0.5ml, preservative free (Flucelvax) 6mo and older 04/11/2021 [facility] [id number] completed Influenza Quadravalent, MDCK , 0.5ml, preservative free (Flucelvax) 6mo and older 04/11/2021 [facility] [id number] completed Influenza Quadravalent, MDCK , 0.5ml, preservative free (Flucelvax) 6mo and older 04/11/2021 [facility] [id number] completed Influenza Quadravalent, MDCK , 0.5ml, preservative free (Flucelvax) 6mo and older 04/11/2021 [facility] [id number] completed Pfizer SARS-CoV-2 COVID-19, mRNA, LNP-S, preservative free 03/14/2021 [facility] [id number] completed Pfizer SARS-CoV-2 COVID-19, mRNA, LNP-S, preservative free 03/14/2021 [facility] [id number] completed Pfizer SARS-CoV-2 COVID-19, mRNA, LNP-S, preservative free 03/14/2021 [facility] [id number] completed Pfizer SARS-CoV-2 COVID-19, mRNA, LNP-S, preservative free 03/[id number] completed Pfizer SARS-CoV-2 COVID-19, mRNA, LNP-S, preservative free 03/14/2021 [facility] [id number] completed Pfizer SARS-CoV-2 COVID-19, mRNA, LNP-S, preservative free 01/31/2021 [facility] completed Pfizer SARS-CoV-2 COVID-19, mRNA, LNP-S, preservative free 01/31/2021 [facility] completed Pfizer SARS-CoV-2 COVID-19, mRNA, LNP-S, preservative free 01/31/2021 [facility] completed Pfizer SARS-CoV-2 COVID-19, mRNA, LNP-S, preservative free 01/31/2021 [facility] completed Influenza Quadravalent, MDCK , 0.5ml, preservative free (Flucelvax) 6mo and older 11/19/2018 [facility] [id number] completed Influenza Quadravalent, MDCK , 0.5ml, preservative free (Flucelvax) 6mo and older 11/19/2018 [facility] [id number] completed Influenza Quadravalent, MDCK , 0.5ml, preservative free (Flucelvax) 6mo and older 11/19/2018 [facility] [id number] completed Influenza Quadravalent, MDCK , 0.5ml, preservative free (Flucelvax) 6mo and older 11/19/2018 [facility] [id number] completed Influenza Quadravalent, MDCK , 0.5ml, preservative free (Flucelvax) 6mo and older 11/19/2018 [facility] [id number] completed Pneumococcal polysaccharide 23 valent (Pneumovax 23) 2yo and older 11/19/2018 [facility] [id number] com pleted Pneumococcal polysaccharide 23 valent (Pneumovax 23) 2yo and older 11/19/2018 [facility] [id number] com pleted Pneumococcal polysaccharide 23 valent (Pneumovax 23) 2yo and older 11/19/2018 [facility] [id number] com pleted Pneumococcal polysaccharide 23 valent (Pneumovax 23) 2yo and older 11/19/2018 [facility] [id number] com pleted Influenza trivalent, 0.5mL, preservative free (Fluarix; FluLaval; Fluzone) ages 6mo and older (Afluria) 3 years and older 11/07/2018 [facility] completed Influenza trivalent, 0.5mL, preservative free (Fluarix; FluLaval; Fluzone) ages 6mo and older (Afluria) 3 years and older 11/07/2018 [facility] completed Influenza trivalent, 0.5mL, preservative free (Fluarix; FluLaval; Fluzone) ages 6mo and older (Afluria) 3 years and older 11/07/2018 [facility] completed Influenza trivalent, 0.5mL, preservative free (Fluarix; FluLaval; Fluzone) ages 6mo and older (Afluria) 3 years and older 11/07/2018 [facility] completed Influenza trivalent, with pr eservative (Fluzone; Afluria) 6mo and older 11/07/2018 [facility] completed Influenza trivalent, with pr eservative (Fluzone; Afluria) 6mo and older 11/07/2018 [facility] completed Influenza trivalent, with pr eservative (Fluzone; Afluria) 6mo and older 11/07/2018 [facility] completed Influenza trivalent, with pr eservative (Fluzone; Afluria) 6mo and older 11/07/2018 [facility] completed Influenza Quadrivalent, 0.5m l, preservative free (Fluarix; FluLaval; Fluzone) ages 6mo and older (Afluria) 3yo and older 12/20/2016 [facility] [id number] completed Influenza Quadrivalent, 0.5m l, preservative free (Fluarix; FluLaval; Fluzone) ages 6mo and older (Afluria) 3yo and older 12/20/2016 [facility] [id number] completed Influenza Quadrivalent, 0.5m l, preservative free (Fluarix; FluLaval; Fluzone) ages 6mo and older (Afluria) 3yo and older 12/20/2016 [facility] [id number] completed Influenza Quadrivalent, 0.5m l, preservative free (Fluarix; FluLaval; Fluzone) ages 6mo and older (Afluria) 3yo and older 12/20/2016 [facility] [id number] completed Influenza trivalent, 0.5mL, preservative free (Fluarix; FluLaval; Fluzone) ages 6mo and older (Afluria) 3 years and older 12/20/2016 [facility] completed Influenza trivalent, 0.5mL, preservative free (Fluarix; FluLaval; Fluzone) ages 6mo and older (Afluria) 3 years and older 12/20/2016 [facility] completed Influenza trivalent, 0.5mL, preservative free (Fluarix; FluLaval; Fluzone) ages 6mo and older (Afluria) 3 years and older 12/20/2016 [facility] completed Influenza trivalent, 0.5mL, preservative free (Fluarix; FluLaval; Fluzone) ages 6mo and older (Afluria) 3 years and older 12/20/2016 [facility] completed Tdap Tetanus diptheria acell ular pertussis (Boostrix; Adacel) 7yo and older 12/20/2016 [facility] [id number] completed Tdap Tetanus diptheria acell ular pertussis (Boostrix; Adacel) 7yo and older 12/20/2016 [facility] [id number] completed Tdap Tetanus diptheria acell ular pertussis (Boostrix; Adacel) 7yo and older 12/20/2016 [facility] [id number] completed Tdap Tetanus diptheria acell ular pertussis (Boostrix; Adacel) 7yo and older 12/20/2016 [facility] [id number] completed Tdap Tetanus diptheria acell ular pertussis (Boostrix; Adacel) 7yo and older 12/20/2016 [facility] [id number] completed PPD Test 08/11/2016 [facility] [id number] completed PPD Test 08/11/2016 [facility] [id number] completed PPD Test 08/11/2016 [facility] [id number] completed PPD Test 08/11/2016 [facility] [id number] completed Influenza trivalent, 0.5mL, preservative free (Fluarix; FluLaval; Fluzone) ages 6mo and older (Afluria) 3 years and older 12/07/2015 [facility] [id number] completed Influenza trivalent, 0.5mL, preservative free (Fluarix; FluLaval; Fluzone) ages 6mo and older (Afluria) 3 years and older 12/07/2015 [facility] [id number] completed Influenza trivalent, 0.5mL, preservative free (Fluarix; FluLaval; Fluzone) ages 6mo and older (Afluria) 3 years and older 12/07/2015 [facility] [id number] completed Influenza trivalent, 0.5mL, preservative free (Fluarix; FluLaval; Fluzone) ages 6mo and older (Afluria) 3 years and older 12/07/2015 [facility] [id number] completed Influenza trivalent, 0.5mL, preservative free (Fluarix; FluLaval; Fluzone) ages 6mo and older (Afluria) 3 years and older 12/07/2015 [facility] [id number] completed Influenza trivalent, with pr eservative (Fluzone; Afluria) 6mo and older 12/07/2015 [facility] [id number] completed Influenza trivalent, with pr eservative (Fluzone; Afluria) 6mo and older 12/07/2015 [facility] [id number] completed Influenza trivalent, with pr eservative (Fluzone; Afluria) 6mo and older 12/07/2015 [facility] [id number] completed Influenza trivalent, with pr eservative (Fluzone; Afluria) 6mo and older 12/07/2015 [facility] [id number] completed Influenza trivalent, with pr eservative (Fluzone; Afluria) 6mo and older 12/07/2015 [facility] [id number] completed Influenza trivalent, 0.5mL, preservative free (Fluarix; FluLaval; Fluzone) ages 6mo and older (Afluria) 3 years and older 01/12/2012 [facility] [id number] completed Influenza trivalent, 0.5mL, preservative free (Fluarix; FluLaval; Fluzone) ages 6mo and older (Afluria) 3 years and older 01/12/2012 [facility] [id number] completed Influenza trivalent, 0.5mL, preservative free (Fluarix; FluLaval; Fluzone) ages 6mo and older (Afluria) 3 years and older 01/12/2012 [facility] [id number] completed Influenza trivalent, 0.5mL, preservative free (Fluarix; FluLaval; Fluzone) ages 6mo and older (Afluria) 3 years and older 01/12/2012 [facility] [id number] completed Influenza trivalent, with pr eservative (Fluzone; Afluria) 6mo and older 01/12/2012 [facility] [id number] completed Influenza trivalent, with pr eservative (Fluzone; Afluria) 6mo and older 01/12/2012 [facility] [id number] completed Influenza trivalent, with pr eservative (Fluzone; Afluria) 6mo and older 01/12/2012 [facility] [id number] completed Influenza trivalent, with pr eservative (Fluzone; Afluria) 6mo and older 01/12/2012 [facility] [id number] completed Influenza trivalent, with pr eservative (Fluzone; Afluria) 6mo and older 01/12/2012 [facility] [id number] completed PPD Test 01/12/2012 [facility] [id number] completed PPD Test 01/12/2012 [facility] [id number] completed PPD Test 01/12/2012 [facility] [id number] completed PPD Test 01/12/2012 [facility] [id number] completed PPD Test 01/12/2012 [facility] [id number] completed Tdap Tetanus diptheria acell ular pertussis (Boostrix; Adacel) 7yo and older 01/12/2012 [facility] [id number] completed Tdap Tetanus diptheria acell ular pertussis (Boostrix; Adacel) 7yo and older 01/12/2012 [facility] [id number] completed Tdap Tetanus diptheria acell ular pertussis (Boostrix; Adacel) 7yo and older 01/12/2012 [facility] [id number] completed Tdap Tetanus diptheria acell ular pertussis (Boostrix; Adacel) 7yo and older 01/12/2012 [facility] [id number] completed Tdap Tetanus diptheria acell ular pertussis (Boostrix; Adacel) 7yo and older 01/12/2012 [facility] [id number] completed Influenza trivalent, 0.5mL, preservative free (Fluarix; FluLaval; Fluzone) ages 6mo and older (Afluria) 3 years and older 01/22/2010 [facility] [id number] completed Influenza trivalent, 0.5mL, preservative free (Fluarix; FluLaval; Fluzone) ages 6mo and older (Afluria) 3 years and older 01/22/2010 [facility] [id number] completed Influenza trivalent, 0.5mL, preservative free (Fluarix; FluLaval; Fluzone) ages 6mo and older (Afluria) 3 years and older 01/22/2010 [facility] [id number] completed Influenza trivalent, 0.5mL, preservative free (Fluarix; FluLaval; Fluzone) ages 6mo and older (Afluria) 3 years and older 01/22/2010 [facility] [id number] completed Influenza trivalent, with pr eservative (Fluzone; Afluria) 6mo and older 01/22/2010 [facility] [id number] completed Influenza trivalent, with pr eservative (Fluzone; Afluria) 6mo and older 01/22/2010 [facility] [id number] completed Influenza trivalent, with pr eservative (Fluzone; Afluria) 6mo and older 01/22/2010 [facility] [id number] completed Influenza trivalent, with pr eservative (Fluzone; Afluria) 6mo and older 01/22/2010 [facility] [id number] completed Pneumococcal polysaccharide 23 valent (Pneumovax 23) 2yo and older 11/22/2009 [facility] [id number] com pleted Pneumococcal polysaccharide 23 valent (Pneumovax 23) 2yo and older 11/22/2009 [facility] [id number] com pleted Pneumococcal polysaccharide 23 valent (Pneumovax 23) 2yo and older 11/22/2009 [facility] 0978Z com pleted Pneumococcal polysaccharide 23 valent (Pneumovax 23) 2yo and older 11/22/2009 [facility] 0978Z com pleted Pneumococcal polysaccharide 23 valent (Pneumovax 23) 2yo and older 11/22/2009 [facility] [id number] com pleted Encounters Encounter Type Encounter Reason Primary Diagnosis Location Date Ambulatory Type 1 diabetes mellitus with diabetic polyneuropathy ([facility], [facility] V28) Type 1 diabetes mellitus with diabetic polyneuropathy ([facility] V24, [facility] [place] [facility] Ambulatory Type 1 diabetes mellitus with diabetic polyneuropathy ([facility]24, [facility] V28) Type 1 diabetes mellitus with diabetic polyneuropathy [facility]24, 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24, [facility] [place] [facility] Ambulatory Follow[place]up Pain in thoracic spine [facility] Amb[place] [facility] 10/28/2024 Ambulatory [facility] 10/28/2024 Ambulatory Follow-up Unspecified convulsions ([facility]24, [facility] [place]28[place] [facility] Amb[place] [facility] 10/28/2024 Ambulatory [facility] 10/26/2024 Ambulatory Annual Exam Encounter for ge neral adult medical examination without abnormal findings [facility] 09/08/2024 Ambulatory Follow-up Encounter for screening for lipoid disorders [facility] 06/03/2024 Ambulatory Follow-up Other symptoms a nd signs concerning food and fluid intake [facility] 05/05/2024 Ambulatory Follow-up Dizziness and giddiness [facility] 04/28/2024 Ambulatory new patient [facility] in other specified circumstances [facility] 03/29/2024 Ambulatory [facility] 01/20/2024 Ambulatory [facility] 01/15/2024 Ambulatory [facility] 01/15/2024 Ambulatory [facility] 01/15/2024 Ambulatory [facility] 01/14/2024 Ambulatory [facility] 01/14/2024 Ambulatory [facility] 01/14/2024 Ambulatory [facility] 01/08/2024 Ambulatory [facility] 01/08/2024 Care Team Organization Name Specialty Phone Email Start Date End Da te [facility] 01/26/2025 [facility] 01/26/2025 [facility] 05/18/2024 [facility] 04/28/2024 [facility] Primary Care 03/29/2024 [facility] Tanya Pineda Primary Care 05/14/2022 10/26/2023 [facility] Termed, [facility] Primary Care 01/14/202210/07
--- OUTSIDE RECORDS SUMMARY | 2025-02-24 04:14 | XMS_ITS | Continuity of Care Document ---
Author Organization [facility] [address] [place] [address] Phone [phone] Problems Active Problems Provider Date Gastroparesis syndrome Johanna Gonzalez Onset: 12/05/2021 Type 1 diabetes mellitus Lashon Hyde M.D. Onset: 12/05/2021 Dyslipidemia Lashon Hyde M.D. Ons et: 12/05/2021 Diabetic peripheral neuropathy Lashon arguelles M.D. Onset: 12/05/2021 Osteoporosis Lashon Hyde M.D. Ons et: 12/05/2021 Chronic obstructive lung disease Lashon Zheng M.D. Onset: 12/05/2021 Pathological fracture of left hip Lashon Jones M.D. Onset: 12/05/2021 Chronic depression Lashon Hyde M.D. Onset: 12/05/2021 Opioid dependence Lashon Hyde M.D. O nset: 12/05/2021 Proliferative retinopathy du e to diabetes mellitus Lashon Hyde M.D. Onset: 12/05/2021 Sinus tachycardia Lashon Hyde M.D. O nset: 12/05/2021 Seizure Lashon Hyde M.D. Ons et: 12/05/2021 Mitral valve regurgitation Lashon salcedo M.D. Onset: 12/05/2022 Mixed sleep apnea Lashon Hyde M.D. O nset: 12/05/2022 Posttraumatic stress disorder Lashno del castillo M.D. Onset: 04/02/2023 Bipolar disorder Lashon Hyde M.D. On set: 04/02/2023 Congestive heart failure Lashon Hyde M.D. Onset: 10/12/2023 Social History Type Date Description Comments Sex Female Sex Unknown Lives With Alone Work Status Disabled ETOH Use Denies alcohol use Tobacco Use Start: Unknown End: Unknown Patient is a former smoker quit 11/2021 Recreational Drug Use Regularly uses Mandi matt Allergies and adverse reactions Description No Known Drug Allergies Medications Active Medications SIG Qnty Indications Ordering Provider Date Dexcom G7 SensorMisc use to check sugar. Replace every 10 days. dx e11.9 3units E10 Lashon Hyde M.D. 11/23/2024 Z96.41 Basaglar Varvukm572Srgg/ML Solution Pen-Inject inject 15 units subcutaneously daily 15ml Claudine Hyde M.D. 11/23/2024 Z96.41 Dexcom G7 ReceiverDevice use for sugar reading dx e11.9 1units Lashon Hyde M.D. 11/23/2024 Z96.41 Freestyle Eron 3 Plus/Sensor/Glucose Monitoring SystemMisc apply one sensor to skin every 15 days 6units E10.Annetta Hyde M.D. 10/05/2024 Z96.41 E10.65 Freestyle Eron 3/[place]/Glucose Monitoring Stuhbd3Ztixlv Device use with sensors to check blood sugar 1units E10Junaid Hyde M.D. 10/05/2024 Z96.41 E10.65 Wmnbbil727Pvvu/ML Solution Use 60 units daily via insulin pump 50ml E10Trina Hyde M.D. 08/16/2024 Vrphmprpxp012wh Capsules Take 1 Capsule By Mouth Twice A Day 60caps Lashon Hyde M.D. 08/31/2023 Baqsimi Two Lrfh1ws/Dose Powder Use 1 [place] In 1 Nostril as Needed For Low Blood Sugar 2units E11.8 Lashon Hyde M.D. 12/05/2021 Albuterol Sulfate KKN094(90Base) mcg/Act Aerosol Inhale 2 Puffs Into The Lungs Every 4 Hours as Needed For Cough Or Wheezing. Unknown Vitamin D31.25mg (71444 Ut) Capsules take 1 capsule by mouth once weekly Unknown Doxycycline Mjcdrkwhfzl28sj Capsules 1 qd Unknown Isosorbide Mononitrate ER30mg Tablets ER 24HR 1 by mouth every day Unknown Atorvastatin Icmskne58qm Tablets 1 by mouth every day Unknown Ferrous Vgeilpc206(65Fe) mg Tablets 1 by mouth every day Unknown Breo Ppofjiz688-24hzy/Act Aerosol 1 puff qd Unknown Aspirin 8181mg Tablets DR 1 by mouth every day Lashon Hyde M.D. Methadone LLO31oz/5ML Solution Lashon Hyde M.D. Contour Next Blood Glucose TestStrips Test Blood Sugar 3 Times A Day as Directed For 90 Days 300units Z96.41 Lashon Hyde M.D. E10.[address] Take 1 Capsul e By Mouth Twice A Day Nadia Garcia MD Fluticasone Qefinntzot26vbe/Act Suspension Leslie Jackman M.D. Albuterol Sulfate(2.5mg/3ML) 0.083% Nebulizer Inhale 1Vial Via Nebulizer Every 6HRS as Needed For Wheezing, Shortness Of Breat Unknown Spiriva Respimat2.5mcg/Act Aerosol Inhale 2 Puffs Into The Lungs Daily Unknown Ventolin JEN827(90Base) mcg/Act Aerosol Inhale 2Puffs Into Lungs Every 6HRS as Needed For Wheezing/Shortness Of Breath M Unknown Promethazine MYI87sz Tablets 1 bid Nadia Garcia MD History Medications Basaglar Xgpbffy229Lnud/ML Solution Pen-Inject inject 15 units subcutaneously daily 15ml Julio Mccollum M.D. 11/22/2024 - 11/23/2024 Vital Signs Date Vital Result Comment 12/05/2024 2:50pm BP Systolic 106 mmHg BP Diastolic 58 mmHg Heart Rate 102 /min tachycardia Height 65 inches 5'5 Weight 124.00 lb BMI (Body Mass Index) 20.6 kg/m2 Results Test Acquired Date Facility Test Result H/L Range Note Glucose Fingerstick 12/05/2024 Inhouse Glucose Fingerstick 155 Glucose Fingerstick 09/29/2024 Inhouse Glucose Fingerstick 181 Hemoglobin A1c 09/29/2024 Inhouse Hemoglobin A1c 8.4% Calcium 05/17/2024 [facility] Calcium 8.8 mg/dL 8.7-10.2 Creatinine 05/17/2024 [facility] Creatinine 0.76 mg/dL 0.57-1.0 0 eGFR 94 mL/min/1. 73 >59 Albumin 05/17/2024 [facility] Albumin 3.8 g/dL 3.8-4.9 Vitamin D, 25-Hydroxy 05/17/2024 [facility] Vitamin D, 25-Hydroxy 38.6 ng/mL 30.0-100 .0 1 BUN 05/17/2024 [facility] BUN 25 mg/dL High 6-24 Glucose Fingerstick 05/17/2024 [facility] Glucose Fingerstick 286 Hemoglobin A1c 05/17/2024 [facility] Hemoglobin A1c 7.5% Comp. Metabolic Panel (14) 02/18/2024 [facility] Glucose 159 mg/dL High 70-99 BUN 17 mg/dL 6-24 Creatinine 1.00 mg/dL 0.57-1.0 0 eGFR 68 mL/min/1. 73 >59 BUN/Creatinine Ratio 17 9-23 Sodium 143 mmol/L 134-144 Potassium 4.1 mmol/L 3.5-5.2 Chloride 99 mmol/L 96-106 Carbon Dioxide, Total 30 mmol/L High 20-29 Protein, Total 6.7 g/dL 6.0-8.5 Albumin 4.1 g/dL 3.8-4.9 Globulin, Total 2.6 g/dL 1.5-4.5 Bilirubin, Total 0.4 mg/dL 0.0-1 .2 Alkaline Phosphatase 118 IU/L 44-121 Ast (Sgot) 27 IU/L 0-40 Alt (SGPT) 26 IU/L 0-32 Calcium 9.3 mg/dL 8.7-10.2 Hemoglobin A1c 02/18/2024 [facility]house Hemoglobin A1c 7.7% Glucose Fingerstick 02/18/2024 [facility]house Glucose Fingerstick 148 Vitamin D, 25-Hydroxy 02/18/2024 [facility] Vitamin D, 25-Hydroxy 49.3 ng/mL 30.0-100 .0 2 TSH Rfx on Abnormal to Free T4 02/18/2024 [facility] TSH Rfx on Abnormal to Free T4 0.873 uIU/mL 0.450-4. 500 Lipid Panel 02/18/2024 [facility] Cholesterol, Total 143 mg/dL 100-199 Triglycerides 124 mg/dL 0-149 HDL Cholesterol 41 mg/dL >39 VLDL Cholestero l [place] 22 mg/dL 5-40 LDL Chol Calc (Nih) 80 mg/dL 0-99 LDL Calc Comment: TNP Glucose Fingerstick 10/09/2023 Inhouse Glucose Fingerstick 253 Hemoglobin A1c 10/09/2023 [facility] Hemoglobin A1c 7.6% Hemoglobin A1c 04/02/2023 [facility]house Hemoglobin A1c 8.0% Glucose Fingerstick 04/02/2023 [facility]house Glucose Fingerstick 161 Albumin 04/02/2023 [facility] Albumin <pending> 25Oh Vitamin D 04/02/2023 [facility] 25Oh Vitamin D <pending> Urinary Microalbumin 12/05/2022 [facility] Micro-Albumin <12.0 mg/L (<20) 3 Malb/Creat Ratio Unable t o calcul <SEE NOTE> MG/GM (0-20) 4 Urine Creat For Micro Albumin 83.2 mg/dL TSH With Reflex To FT4 12/05/2022 [facility] TSH With Reflex To FT4 1.26 uIU/mL (0.4-4.2 ) Glucose Fingerstick 12/05/2022 [facility] Glucose Fingerstick 230 Hemoglobin A1c 12/05/2022 [facility] Hemoglobin A1c 8.1% Glucose Fingerstick 04/09/2022 [facility] Glucose Fingerstick 138 Hemoglobin A1c 04/09/2022 [facility] Hemoglobin A1c 6.9% Albumin 04/09/2022 [facility] Albumin 4.3 GM/DL (3.4-4.8 ) 25Oh Vitamin D 04/09/2022 [facility] 25Oh Vitamin D 32.7 NG/ML (20-50) Calcium 04/09/2022 [facility] Calcium 9.5 mg/dL (8.6-10. 5) Creatinine 04/09/2022 [facility] Creatinine 0.8 mg/dL (0.5-1.0 ) Estimated GFR Creatinine 85 ML/MIN/1. 73M2 5 Creatinine 12/05/2021 [facility] Creatinine 1.0 mg/dL (0.5-1.0 ) Estimated GFR Creatinine 70 ML/MIN/1. 73M2 6 Calcium 12/05/2021 [facility] Calcium 9.4 mg/dL (8.6-10. 5) Albumin 12/05/2021 [facility] Albumin 4.3 GM/DL (3.4-4.8 ) Glucose Fingerstick 12/05/2021 [facility]house Glucose Fingerstick 258 Hemoglobin A1c 12/05/2021 Inhouse Hemoglobin A1c 8.7% Urinary Microalbumin 10/28/2021 [facility] Micro-Albumin 31.0 mg/L High (<20) 7 Malb/Creat Ratio 16.0 MG/GM (0-20) Urine Creat For Micro Albumin 193.3 mg/dL Comprehensive Metabolic Panl 10/28/2021 [facility] Glucose 284 mg/dL High (70-99) BUN 23 mg/dL High (6-20) Creatinine 1.0 mg/dL (0.5-1.0 ) Sodium 139 mmol/L (133-145 ) Potassium 4.2 mmol/L (3.6-5.2 ) Chloride 98 mmol/L (98-107) Bicarbonate 32 mmol/L High (22-29) Anion Gap 9 (4-17) Albumin 4.0 GM/DL (3.4-4.8 ) Calcium 9.4 mg/dL (8.6-10. 5) Bilirubin,Total 0.3 mg/dL (0-1.2 ) Total Protein 6.7 GM/DL (6.2-8.2 ) Ag Ratio 1.5 Ast 43 U/L High (0-32) Alk Phos 160 U/L High (35-104) Alt 31 U/L (0-33) Estimated GFR Creatinine 68 ML/MIN/1. 73M2 8 TSH With Reflex To FT4 10/28/2021 [facility] TSH With Reflex To FT4 2.08 uIU/mL (0.4-4.2 ) 25Oh Vitamin D 10/28/2021 [facility] 25Oh Vitamin D 33.3 NG/ML (20-50) PTH, Intact 10/28/2021 [facility] PTH, Intact 56 pg/mL (15-65) 1 Vitamin D deficiency has been defined by the [place] [employer] and an Endocrine Society practice guideline as a level of serum 25-OH vitamin D less than 20 ng/mL (1,2). The Endocrine Society went on to further define vitamin D insufficiency as a level between 21 and 29 ng/mL (2). 1. IOM ([place] of [employer]). 2010. Dietary reference intakes for calcium and D. [place]: [employer]. 2. Naty Meza, Cong JACOBS, et al. Evaluation, treatment, and prevention of vitamin D deficiency: an Endocrine Society clinical practice guideline. JCEM. 2010; 96(7):1911-30. 2 Vitamin D deficiency has been defined by the [place] [employer] and an Endocrine Society practice guideline as a level of serum 25-OH vitamin D less than 20 ng/mL (1,2). The Endocrine Society went on to further define vitamin D insufficiency as a level between 21 and 29 ng/mL (2). 1. IOM ([place] [employer]). 2010. Dietary reference intakes for calcium and D. [place]: The [employer]. 2. Naty Meza, Cong JACOBS, et al. Evaluation, treatment, and prevention of vitamin D deficiency: an Endocrine Society clinical practice guideline. JCEM. 2010; 96(7):1911-30. 3 The urine microalbum in test is designed to monitor renal function. When screening for [place]aran[place] proteinuria, urine electrophoresis is recommended. 4 Unable to calculate 5 Creatinine based est imated glomerular filtration (eGFR) in adults is calculated using the National Kidney Foundation recommended 2020 CKD-EPI equation. Estimates GFR from serum creatinine, age and sex. 6 Creatinine based est imated glomerular filtration (eGFR) in adults is calculated using the National Kidney Foundation recommended 2020 CKD-EPI equation. Estimates GFR from serum creatinine, age and sex. 7 The urine microalbum in test is designed to monitor renal function. When screening for [place] proteinuria, urine electrophoresis is recommended. 8 Creatinine based est imated glomerular filtration (eGFR) in adults is calculated using the National Kidney Foundation recommended 2020 CKD-EPI equation. Estimates GFR from serum creatinine, age and sex. Procedures Date Code Description Status 12/05/2024 62329 Glucose Monitoring Interpeta tion And Report Completed 09/29/2024 58424 Glucose Monitoring Interpeta tion And Report Completed 05/17/2024 37264 Glucose Monitoring Interpeta tion And Report Completed 05/17/2024 72620 Collection Of Venous Blood B y Venipuncture Completed 02/18/2024 92329 Glucose Monitoring Interpeta tion And Report Completed 02/18/2024 76692 Collection Of Venous Blood B y Venipuncture Completed 10/09/2023 68142 Glucose Monitoring Interpeta tion And Report Completed 04/02/2023 07089 Glucose Monitoring Interpeta tion And Report Completed 12/05/2022 58094 Glucose Monitoring Interpeta tion And Report Completed 12/05/2022 52688 Collection Of Venous Blood B y Venipuncture Completed 10/24/2022 NSHOWOFF No Show Office Visit Complet ed 04/09/2022 43929 Glucose Monitoring Interpeta tion And Report Completed 04/09/2022 45530 Collection Of Venous Blood B y Venipuncture Completed 12/05/2021 46477 Glucose Monitoring Interpeta tion And Report Completed 12/05/2021 35584 Collection Of Venous Blood B y Venipuncture Completed Medical Devices Description No Information Available Encounters Type Date Location Provider Dx Diagnosis Office Visit 12/05/2024 2:30p Main Office Lashon Hyde M.D. 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 12/05/2024 E10.42 Type 1 diabetes mellitus with diabetic polyneuropathy Lashon Hyde M.D. 12/05/2024 Z96.41 Presence of insu mayra pump (external) (internal) Lashon Hyde M.D. 12/05/2024 K31.84 Gastroparesis Lashon Jones M.D. 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
--- OUTSIDE RECORDS SUMMARY | 2025-02-24 04:14 | XMS_ITS | Clinical Summary ---
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 2022 Active glucose blood (Embrace WAVE Glucose Test Strp) test strip check glucose levels 3-4 times daily Active infusion set for insulin pump infusion set daily. Active pregabalin (LYRICA) 300 mg capsule Take 1 capsule (300 mg total) by mouth at bedtime. 2023 Active promethazine (PHENERGAN) 25 mg suppositoryIndic ations:Nausea Insert 1 suppository (25 mg total) into the rectum every 6 (six) hours if needed for nausea or vomiting. 30 suppository 2 03/23 Active methadone HCl (METHADONE, BULK, MISC) 60mg in the morning Active aspirin 81 mg capsule Take 81 mg by mouth 1 (one) time each day. Active atorvastatin (LIPITOR) 80 mg tablet Take 1 tablet (80 mg total) by mouth at bedtime. Active isosorbide mononitrate (IMDUR) 30 mg 24 hr tablet Take 1 tablet (30 mg total) by mouth 1 (one) time each day. Do not crush or chew. Active food supplemt, lactose-reduced (Boost) 0.04 gram- 1 kcal/mL liquidIndication s:Difficulty maintaining weight Take 1 Bottle by mouth 1 (one) time each day. 24 each 2 2024 Active nut.tx.gluc intol,lf,soy-fib er (Glucerna 1.5 Bijan) 0.08-1.5 gram-kcal/mL liquidIndication s:Gastroparesis Take 1 Bottle by mouth 1 (one) time each day. 30 each 11 07/06 Active albuterol HFA (PROAIR HFA ; PROVENTIL HFA ; VENTOLIN HFA) 90 mcg/actuation inhalerIndicatio ns:Stage 2 moderate COPD by GOLD classification (CMS/HCC V24, [facility] V28) INHALE 2 PUFFS BY MOUTH EVERY 6 HOURS NEEDED FOR WHEEZE 6.7 each 5 2024 Active HumaLOG U-100 Insulin 100 unit/mL injection by Other route. 2024 Active loteprednol (LOTEMAX) 0.5 % ophthalmic suspension 2024 Active cycloSPORINE 0.05 % drops Administer into affected eye(s) every 12 (twelve) hours. Active glucose 4 gram chewable tablet Chew 4 tablets (16 g total) if needed for low blood sugar. 50 tablet 2024 Active glucagon 0.5 mg/0.1 mL auto-injector Inject 0.5 mg under the skin 1 (one) time if needed (Inject contents of pen subcutaneously in the upper arms, thighs, or buttocks for severe hypoglycemia, may repeat in 15 minutes as needed.) for up to 1 dose. 2 each 1 2024 Active fluticasone furoate-vilanter oL (Breo Ellipta) 200-25 mcg/dose inhalerIndicatio ns:Stage 2 moderate COPD by GOLD classification (CMS/HCC V24, CMS/HCC V28) Inhale 1 puff by mouth 1 (one) time each day. 1 each 12/30 Active tiotropium (Spiriva Respimat) 2.5 mcg/actuation inhalation sprayIndications :Stage 2 moderate COPD by GOLD classification (CMS/HCC V24, [facility] V28) Inhale 2 puffs by mouth 1 (one) time each day. 4 g 11 12/30 Active fluticasone propionate (FLONASE) 50 mcg/actuation nasal sprayIndications :Stage 2 moderate COPD by GOLD classification ([facility] V24, [facility] V28) ADMINISTER 2 SPRAYS INTO EACH NOSTRIL 2 (TWO) TIMES A DAY. SHAKE GENTLY. BEFORE FIRST USE, PRIME PUMP. AFTER USE, CLEAN TIP AND REPLACE CAP. 48 mL 1 07/26 Active varenicline tartrate (CHANTIX) 1 mg tabletIndication s:Stage 2 moderate COPD by GOLD classification ([facility] V24, [facility] V28) TAKE 1 TABLET BY MOUTH 2 TIMES DAILY AFTER BREAKFAST AND DINNER WITH FULL GLASS OF WATER. 180 tablet 05/21 Active omeprazole (PriLOSEC) [address] capsuleIndicatio ns:Gastroesophag eal reflux disease without esophagitis Take 1 capsule (20 mg total) by mouth 2 (two) times a day. Do not crush or chew. 180 each 3 02/16 Active lancets 33 gauge miscIndications: Type 1 diabetes mellitus with diabetic polyneuropathy ([facility] [place], [facility] V28) Use to test blood glucose up to 3 times daily 200 each 2024 Active blood sugar diagnostic (Contour Next Test Strips) test stripIndications :Type 1 diabetes mellitus with diabetic polyneuropathy ([facility] [place], [facility] V28) Use as instructed to check blood glucose up to 3 times daily 200 each 2024 Active insulin syringe,safety needle (BD SafetyGlide Insulin Syringe) 0.3 mL 31 gauge x 07/22 syringeIndicatio ns:Type 1 diabetes mellitus with diabetic polyneuropathy ([facility] V24, [facility] V28) 1 EA if needed (to inject insulin). Use to inject 1-4 times daily as directed 100 each 2024 Active glucagon (Baqsimi) 3 mg/actuation nasal spray by Nasal route. 01/26 Discontinued( Therapy completed) omeprazole (PriLOSEC) [address] capsuleIndicatio ns:Gastroesophag eal reflux disease without esophagitis Take 1 capsule (20 mg total) by mouth 2 (two) times a day. Do not crush or chew. 180 each 3 02/17 Discontinued( Reorder) fluticasone propionate (FLONASE) 50 mcg/actuation nasal sprayIndications :Stage 2 moderate COPD by GOLD classification (CMS/HCC V24, CMS/HCC V28) ADMINISTER 2 SPRAYS INTO EACH NOSTRIL 2 (TWO) TIMES A DAY. SHAKE GENTLY. BEFORE FIRST USE, PRIME PUMP. AFTER USE, CLEAN TIP AND REPLACE CAP. 48 mL 1 01/27 Discontinued ipratropium-albu teroL (DUONEB) 0.5-2.5 mg/3 mL nebulizer solutionIndicati ons:Stage 2 moderate COPD by GOLD classification (CMS/HCC V24, CMS/HCC V28) Take 3 mL by nebulization 4 (four) times a day. 360 mL 5 01/26 Discontinued( Therapy completed) varenicline tartrate (CHANTIX) 1 mg tabletIndication s:Stage 2 moderate COPD by GOLD classification (CMS/HCC V24, CMS/HCC V28) TAKE 1 TABLET BY MOUTH 2 TIMES DAILY AFTER BREAKFAST AND DINNER WITH FULL GLASS OF WATER. 180 tablet 02/20 Discontinued Active Problems Problem Noted Date Diagnosed Date Hypoglycemia 11/27/2024 Type 1 diabetes mellitus wit h proliferative diabetic retinopathy without macular edema, bilateral 09/08/2024 Assessment & Plan (09/08/2024 12:39 PM EDT): 1. Follow-up with endocrinology as scheduled. Continue taking medications as prescribed 2. 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 Patient has a history of chronic kidney disease. Nephrology appointment was scheduled earlier this year and follow-up is to be completed later this year 2. Will check on kidney function and urinalysis, patient has been taking supplements. She has been notified that these can impact liver and kidney function. Will continue to monitor, she will let other specialists know about these supplements that she has been taking 3. Will monitor to see if supplements need to be altered or discontinued for the time being. Will call with results when received Dyslipidemia 12/05/2021 Osteoporosis 12/05/2021 History of seizures 12/05/2021 Complex sleep apnea syndrome 11/23/2021 Overview (01/12/2024): [facility] Sleep Center Polysomnogram: Date:10/17/2021; Wt 115#; BMI 19.14; SE 83%; SM 85%; REM 10%; RDI 60(AHI 58), REM (RDI 35- AHI 35), Central apneas 227; Obstructive [id number] Mixed apneas 58; hypopneas 63; RERAs 1; average oxygen saturation 93% (lowest 84% - without saturations <88% for 5% or more of study); PLMs 8. - Obstructive Sleep Apnea - severe overall and severe in REM; mostly central apneas; without sleep related hypoventilation by 2021 polysomnogram. [facility] Treatment Polysomnogram: Date 08/12/2022 ; Wt 127#; BMI 20.5; SE 77%; SM 80%; REM 0%; CPAP @ 8: AHI 0.9, REM AHI 0, Central apneas 2; Obstructive apneas 1; Mixed apneas 1; hypopneas 1; average oxygen saturation 95% (lowest 91%); PL0. Last Assessment & Plan: Needs treatment sleep study to evaluate hypercarnia during sleep and effects of therapy which is ordered. Nocturnal hypoxia 09/16/2021 Overview (01/12/2024): 09/04/2021 Overnight oxymetery 1.Lowest oxygen is 72% 2.Oxygen <88%-355min 3.Supplemental oxygen indicated. Stage 2 moderate COPD by GOLD classification 01/2020 Prolonged QT interval 09/01/2018 Polycythemia, secondary 02/26/2016 Overview (01/12/2024): Seen Dr. Quintanilla 02/2016 Suicide attempt by multiple drug overdose 2015 Overview (01/12/2024): See telephone note. Admission at [facility] on 10/03/2015 with suicidal attempt with fentalyn pathc, trazodone and risperdone Posttraumatic stress disorder 07/25/2013 Diabetic peripheral neuropathy 01/11/2013 Overview (09/08/2024): >>OVERVIEW FOR PERIPHERAL NEUROPATHY WRITTEN ON 01/12/2024 11:51 AM BY RAQUEL PEÑA. Assessment & Plan (09/08/2024 12:39 PM EDT): Orders: Ambulatory referral to Neurology; Future 1. Sugars have been stable, follow-up with endocrinology has been scheduled 2. Patient has been seeking care through neurology, is requesting referral to be placed to [facility]. Office will fax this referral over in hopes that patient will be able to be seen Hidradenitis suppurativa 07/07/2012 Cervical high risk human pap illomavirus (HPV) DNA test positive 06/23/2012 Overview (01/12/2024): Abbey 1 by colpo Bx 06/2012. Pap normal and HPV neg 07/2013. ASCCP guidelines are repeat co-testing 3 years. 2016 NIL +HPV 2019 NIL +HPV 10/2022 NIL +HPV, colposcopy recommended per ASCCP Mitral regurgitation 05/23/2011 Overview (01/12/2024): Mild per ECHO 06/2010 Last Assessment & Plan: Most likely from restrictive motion of calcified posterior leaflet. She does not have a significant heart murmur by physical exam. We will repeat echocardiogram. Bipolar affective disorder 06/14/2010 Assessment & Plan (09/08/2024 12:39 PM EDT): 1. Depression and bipolar has been stable. Patient endorses that she is not interested in therapy at this time 2. No SI or HI, feels safe at home 3. Has support in her daughter 4. Is not interested in considering medications at this time but is open to the conversation in the future Hilar adenopathy 10/13/2008 DM (diabetes mellitus), type 1 with neurological complications 08/25/2008 Overview (01/12/2024): Painful- Sees Dr. Chandra and gets narcotics with him Depression 04/25/2008 Gastroparesis 04/25/2008 Overview (01/12/2024): Due to dm.SAW GI AND HAD ENDOSCOPY. Dx 2003. Assessment & Plan (12/02/2024 12:08 PM EDT): Assessment & Plan (07/06/2024 12:02 PM EDT): Resolved Problems Problem Noted Date Diagnosed Date Resolved Date Bone fracture 09/08/2024 09/08/2024 CHF exacerbation 06/08/2023 09/08/2024 Congestive heart failure 05/13/202305/2024 Chest pain on exertion 07/02/202209/08 Overview (01/12/2024): Last Assessment & Plan: Atypical. Could be anxiety related. Given the multiple risk factors, will arrange pharmacological nuclear perfusion stress test. COTTRELL (dyspnea on exertion) 07/02/2022 Pathological fracture of left hip 12/05/2021 09/08/2024 Sinus tachycardia 12/05/2021 09/08/2024 Methadone dependence 09/01/2018 025 Lumbar radiculitis 05/21/2016 Heroin abuse 10/31/2015 09/08/2024 Overview (01/12/2024): Admitted [facility] 10/30/2015 for detox from heroin Diabetes mellitus type 1 10/21/2010 Overview (01/12/2024): [facility] hall at [facility], insulin pump Hyperlipidemia 04/25/2008 09/08/2024 Palpitations 04/25/2008 09/08/2024 Overview (01/12/2024): WITH TACHYCARDIA AT BASELINE AND SEEN BY DR MARTÍN BRANDT ECHO: 06/2010: Normal LV size with LVEF of 60 to 65%. Normal LV diastolic function. Thickened mitral leaflets suggestive of possible myxomatous changes with mild to moderate mitral regurgitation. Normal RV systolic pressure. No pericardial effusion. Encounters Date Type Department Care Team Description 02/23/2025 Telephone Internal Medicine - [place] [address] [place] [phone] Dilia Christopher MA 02/20/2025 11:40 AM EST [facility] [place] [address] [place] [address] Priyanka Buenrostro MD Type 1 diabetes mellitus with diabetic polyneuropathy (CMS/HCC V24, CMS/HCC V28) (Primary Dx) 02/20/2025 Telephone [facility] - [address] [place] [phone] Bogdan Sapp, SENG 02/17/2025 11:20 AM EST [facility]medicine [facility] - [address] [place] [phone] Priyanka Buenrostro MD Type 1 diabetes mellitus with diabetic polyneuropathy (CMS/HCC V24, CMS/HCC V28) 02/17/2025 Telephone Internal Medicine - [place] [address] [place] [phone] Angela Graham MA 01/26/2025 10:42 AM EST - 01/26/2025 11:59 PM EST Hospital Encounter [facility] Xray - [place] [address] [place] [address] Discharge Disposition: Home or Self Care 01/26/2025 10:15 AM EST Consult Rehabilitation Medicine - [place] [address] [place] [phone] Gisel Garcia MD Thoracic degenerative disc disease (Primary Dx) 2025 10:15 AM EST - 2025 11:59 PM EST Hospital Encounter [facility] Xray [address] [place] [phone] Dysphagia, unspecified type Discharge Disposition: Home or Self Care 2025 Results Follow-Up Gastroenterology - [address] [facility] 299 [facility] [address] [place] [address] Nadia Garcia MD 01/16/2025 Telephone Pulmonology - [place] [address] [facility] [address] [place] [address] Tanya Pineda NP 01/02/2025 Telephone Pulmonology - [place] [address] [facility] [address] [place] [address] Sally Del Rosario MA 12/30/2024 11:00 AM EDT Office Visit Internal Medicine - [place] [address] [place] [phone] Jo Alcocer PA Type 1 diabetes mellitus with diabetic polyneuropathy (CMS/HCC V24, CMS/HCC V28) (Primary Dx); Diabetic peripheral neuropathy (CMS/HCC V24, CMS/HCC V28); Pitting edema; Isolated tremor of head 12/29/2024 11:25 AM EDT Office Visit Pulmonology - [place] [address] [facility] [address] [place] [address] Tanya Pineda NP Severe sleep apnea (Primary Dx); Stage 2 moderate COPD by GOLD classification (CMS/HCC V24, CMS/HCC V28); Polycythemia, secondary; Nocturnal hypoxia 12/27/2024 10:24 AM EDT - 12/27/2024 11:59 PM EDT Hospital Encounter [facility] CT Scan [address] [place] [phone] Encounter for screening for malignant neoplasm of respiratory organs; Personal history of nicotine dependence Discharge Disposition: Home or Self Care 12/08/2024 Telephone Lung Screening Program - [place] [address] [facility] [address] [place] [address] Luciana Owens MA 12/05/2024 Telephone Gastroenterology - [address] [facility] 299 [facility] [address] [place] [phone] Nadia Garcia MD 12/02/2024 10:20 AM EDT Office Visit Gastroenterology - [address] [facility] 299 [facility] [address] [place] [phone] Nadia Garcia MD Gastroesophageal reflux disease without esophagitis (Primary Dx); Dysphagia, unspecified type; Colon cancer screening; Gastroparesis 12/02/2024 Telephone Gastroenterology - [address] [facility] 299 [facility] [address] [place] [phone] [place] Becerra [place] 12/02/2024 Telephone Pulmonology - [place] [address] [facility] [address] [place] [phone] Tanya Pineda NP 11/27/2024 12:25 AM EDT - 11/28/2024 10:43 AM EDT Hospital Encounter [facility] Intermediate Care Unit [address] [place] [phone] Katiuska Seo MD Ishtiaq, Rizwan, MD Mohani, Priya, MD Santoyo-Pachec o, Omar D, MD Kela, Maury [place] MD Type 1 diabetes mellitus with hypoglycemia and without coma ([facility] V24, [facility] V28) (Primary Dx) Discharge Disposition: Home or Self Care from Last 3 Months Immunizations Immunization Administration Dates Next Due Influenza Quadravalent, MDCK , 0.5ml, preservative free (Flucelvax) 6mo and older 12/11/2021,04/11/2021,11/19/2018 Influenza Quadrivalent, 0.5m l, preservative free (Fluarix; FluLaval; Fluzone) ages 6mo and older (Afluria) 3yo and older 05/02/2023,12/20/2016 Influenza trivalent, 0.5mL, preservative free (Fluarix; FluLaval; Fluzone) ages 6mo and older (Afluria) 3 years and older 11/07/2018,12/20/2016,12/07/2015,01/11,01/22/2010 Influenza trivalent, with pr eservative (Fluzone; Afluria) 6mo and older 11/07/2018,12/07/2015,01/12/2012,01/22 PPD Test 08/11/2016,01/12/2012 [employer] SARS-CoV-2 COVID-19, mRNA, LNP-S, preservative free 03/14/2021,01/31/2021 Pneumococcal polysaccharide 23 valent (Pneumovax 23) 2yo and older 11/19/2018,11/22/2009 Tdap Tetanus diptheria acell ular pertussis (Boostrix; Adacel) 7yo and older 12/20/2016,01/12/2012 Zoster recombinant (Shingrix ) 19yo and older 07/15/2022 Surgical History Surgery Date Site/Laterality Comments TUBAL LIGATION PROCEDURE: HISTORICAL TUBAL LIGATION COLONOSCOPY 04/16/2010 PROCEDURE: HISTORICAL COLONOSCOPY; COMMENT: normal COLONOSCOPY 04/19/2015 PROCEDURE: HISTORICAL COLONOSCOPY; COMMENT: Normal SECTION, LOW TRANSVERSE FRACTURE SURGERY 2021 Medical History Medical History Date Comments Diabetes mellitus type 1, uncontrolled 01/22/2010 DX:Diabetes mellitus type 1, uncontrolled Family history of cardiovasc ular disease DX:Family history of cardiov ascular disease Lung nodule DX:Lung nodule; COMMENT: Repeat low-dose CT in 1 year Opioid use disorder DX:Opioid us e disorder ADHD (attention deficit hype ractivity disorder) Anemia Anxiety COPD (chronic obstructive pu lmonary disease) ([facility] V24, [facility] V28) Depression Eczema HL (hearing loss) Low back pain Sleep apnea Vision problems Failure to thrive in adult patie nt reported Carpal tunnel syndrome Gastroparesis Neuropathy in legs H/O degenerative disc disease in back - patient reported Mitral valve regurgitation Sinus tachycardia 12/05/2021 Bone fracture 09/08/2024 Chest pain on exertion 07/02/2022 Last Asse ssment & Plan: Atypical. Could be anxiety related. Given the multiple risk factors, will arrange pharmacological nuclear perfusion stress test. Lumbar radiculitis 05/21/2016 COTTRELL (dyspnea on exertion) 07/02/2022 CHF exacerbation ([facility] V2 4, [facility] V28) 06/08/2023 Heroin abuse ([facility] V24, [facility] V28) 10/31/2015 Admitted [facility] 10/30/2015 for detox from heroin Family History Medical History Relation Name Comments Colon cancer Aunt maternal Diabetes Brother 1 Other cancer Brother 1 Non-hodgkins Alcohol abuse Brother 2 Cancer Brother 2 Colon polyps Brother 2 2 polyps Diabetes Brother 2 Mental illness Brother 2 Diabetes Daughter Alcohol abuse Father Heart attack Father Hyperlipidemia Father Mental illness Father Dementia Maternal Grandfather Arthritis Maternal Grandmother Colon cancer Maternal Grandmother Uterine cancer Maternal Grandmother colon cancer with mets age 70 Alcohol abuse Mother Asthma Mother COPD Mother Colon polyps Mother 3 polyps Depression Mother Diabetes Mother Hyperlipidemia Mother positive H. p ylori Mental illness Mother Other: ovarian cancer Other 1 mggm Throat cancer Other 2 mggf Prostate cancer Other 3 mat gr uncle Other: ovarian cancer Other 4 mat gr aunt Breast cancer Other 5 mat great aunt Prostate cancer Other 6 mat gr uncle Heart disease Paternal Grandfather Arthritis Paternal Grandmother Dementia Paternal Grandmother Colon polyps Uncle maternal; 6 or 7 polyps Relation Name Status Comments Aunt Brother 1 Alive 2 Brother 2 Alive Daughter Alive Father Maternal Grandfather Maternal Grandmother Mother Alive Other 1 Other 2 Other 3 Other 4 Other 5 Other 6 Paternal Grandfather Paternal Grandmother Uncle Social History Tobacco Use Types Packs/Day Years Used Date Smoking Tobacco: Former Cigarettes 1 0.5 0 06/07/2021 - 12/07/2021 Smokeless Tobacco: Never Tobacco Cessation:Counseling Given: Not Answered Alcohol Use Standard Drinks/Week Comments Never 0 [...] Orientation Straight 05/11/2024 9: 27 PM EST Last Filed Vital Signs Vital Sign Reading Time Taken Comments Blood Pressure 117/64 01/26/2025 10:15 AM EST Pulse 97 01/26/2025 10:15 AM EST Temperature 36.8 C (98.3 F) 12/30/2024 10:55 AM EDT Respiratory Rate 18 12/29/2024 11:47 AM EDT Oxygen Saturation 95% 12/30/2024 10:55 AM EDT Inhaled Oxygen Concentration - - Weight 58.1 kg (128 lb) 01/26/2025 10:15 AM EST Height 167.6 cm (5' 6 ) 01/26/2025 10:15 AM EST Body Mass Index 20.66 01/26/2025 10:15 AM EST Plan of Treatment Upcoming Encounters Date Type Department Care Team (Late st Contact Info) Description 03/21/2025 10:30 AM EST Office Visit Rehabilitation Medicine - [place] [address] [place] [phone] Gisel Garcia MD [address] [place] [address] 04/03/2025 11:00 AM EST Office Visit Internal Medicine - [place] [address] [place] [phone] Jo Alcocer PA [address] [place] [address] 04/13/2025 11:00 AM EST Appointment [facility] Endoscopy [address] [facility] [place] [phone] Levon Cuevas MD [address] [facility] [address] [place] [address] 05/05/2025 11:40 AM EST Office Visit [facility] [place] [address] [facility] [place] [phone] Priyanka Buenrostro MD [address] [place] [address] 06/29/2025 11:25 AM EDT Office Visit Pulmonology - [place] [address] [facility] [address] [place] [phone] Tanya Pineda NP [address] [place] [phone] Health Maintenance Due Date Last Done Comments Diabetes: Annual Foot Exam 01/22/1982 Diabetes: Annual Retina Eye Exam 01/22/1982 Hepatitis B Vaccines (1 of 3 - 19+ 3-dose series) 01/22/1991 Pneumococcal Vaccine: 50+ Years (2 of 2 - PCV) 11/20/2019 11/19/2018, 11/22/2009 RSV Immunization Adult Patients (1 - Risk 50-74 years 1-dose series) 01/22/2022 Social Influencers of Health Screening 02/09/2022 Diabetes: Annual Urine Albumin-Creatinine Ratio (uACR) 02/22/2022 Diabetes: Blood Sugar Control Test (HGBA1C) 02/22/2022 01/08/2021 Zoster Vaccines (2 of 2) 09/09/2022 07/15/2022 COVID-19 Vaccine ( season) 2024 12/11/2021, 03/14/2021, 01/31/2021, Additional history exists Influenza Vaccine (#1) 2024 , 12/11/2021, 04/11/2021, Additional history exists Breast Cancer Screening 12/09/2024 12/10/19 23, 12/13/2019, 05/23/2019, Additional history exists Medicare Annual Wellness Visit 09/08/2025 09/08/2024 Diabetes: Annual GFR (Glomerular Filtration Rate) 11/28/2025 11/28/2024, 11/27/2024, 11/27/2024, Additional history exists Colorectal Cancer Screening: Colonoscopy 01/08/2026 01/08/2021 Osteoporosis Screening (Bone Density Screening) 03/16/2026 03/16/2024 DTaP,Tdap,and Td Vaccines (3 - Td or Tdap) 12/20/2026 12/20/2016, 01/12/2012 Cervical Cancer Screening: HPV 10/31/2027 10/30/2022 Cholesterol Screening (Lipid Panel) 11/30/2029 11/30/2024, 06/03/2024, 01/08/2021 HIV Screening Completed 10/30/2022 Hepatitis C Screening Completed 10/30/2022 Depression Screening Completed 09/08/2024 HIB Vaccines Aged Out No longer eligi ble based on patient's age to complete this topic HPV Vaccines Aged Out No longer eligi ble based on patient's age to complete this topic Hepatitis A Vaccines Aged Out No long er eligible based on patient's age to complete this topic IPV Vaccines Aged Out No longer eligi ble based on patient's age to complete this topic MMR Vaccines Aged Out No longer eligi ble based on patient's age to complete this topic Meningococcal ACWY Vaccine Aged Out N o longer eligible based on patient's age to complete this topic Meningococcal B Vaccine Aged Out No l onger eligible based on patient's age to complete this topic RSV Immunization Patients Under 20 months Aged Out No longer eligible based on patient's age to complete this topic Varicella Vaccines Aged Out No longer eligible based on patient's age to complete this topic Goals Goal Patient Goal Type Associated Problems Recent Progress Patient-Stated? Author Autogenera juanito Goal Care Plan Autogenerated Problem Janice Kidd Procedures Procedure Name Priority Date/Time Associated Diagnosis Comments XR THORACIC SPINE 3 VIEWS Routine 01/26/2025 11:04 AM EST Thoracic degenerative disc disease XR UGI W AIR CONTRAST Routine 2025 10:58 AM EST Dysphagia, unspecified type POC URINE AUTO W/O MICRO Routine 12/30/2024 11:25 AM EDT Type 1 diabetes mellitus with diabetic polyneuropathy ([facility] V24, [facility] V28) POC GLUCOSE Routine 12/30/2024 11:24 AM EDT Type 1 diabetes mellitus with diabetic polyneuropathy (CMS/[facility] V24, CMS/HCC V28) CT LUNG SCREENING Routine 12/27/2024 10: 42 AM EDT Encounter for screening for malignant neoplasm of respiratory organs Personal history of nicotine dependence POCT GLUCOSE BLOOD Routine 11/28/2024 10 :02 AM EDT POCT GLUCOSE BLOOD Routine 11/28/2024 8: 04 AM EDT POCT GLUCOSE BLOOD Routine 11/28/2024 7: 21 AM EDT LAVENDER - EDTA Routine 11/28/2024 5:34 AM EDT EXTRA TUBES Routine 11/28/2024 5:34 AM EDT BASIC METABOLIC PANEL Routine 11/28/2024 5:34 AM EDT POCT GLUCOSE BLOOD Routine 11/28/2024 3: 07 AM EDT POCT GLUCOSE BLOOD Routine 11/28/2024 1: 48 AM EDT POCT GLUCOSE BLOOD Routine 11/28/2024 12 :18 AM EDT POCT GLUCOSE BLOOD Routine 11/27/2024 11 :46 PM EDT POCT GLUCOSE BLOOD Routine 11/27/2024 10 :29 PM EDT POCT GLUCOSE BLOOD Routine 11/27/2024 7: 50 PM EDT POCT GLUCOSE BLOOD Routine 11/27/2024 4: 27 PM EDT POCT GLUCOSE BLOOD Routine 11/27/2024 12 :08 PM EDT POCT GLUCOSE BLOOD Routine 11/27/2024 7: 51 AM EDT CBC WITH AUTO DIFFERENTIAL Routine 11/27/2024 5:31 AM EDT CBC AND DIFFERENTIAL Routine 11/27/2024 5:31 AM EDT BASIC METABOLIC PANEL Routine 11/27/2024 5:31 AM EDT POCT GLUCOSE BLOOD Routine 11/27/2024 5: 21 AM EDT POCT GLUCOSE BLOOD Routine 11/27/2024 3: 57 AM EDT POCT GLUCOSE BLOOD Routine 11/27/2024 3: 20 AM EDT POCT GLUCOSE BLOOD Routine 11/27/2024 2: 36 AM EDT POCT GLUCOSE BLOOD Routine 11/27/2024 2: 07 AM EDT POCT GLUCOSE BLOOD Routine 11/27/2024 1: 19 AM EDT CBC WITH AUTO DIFFERENTIAL STAT 11/27/2024 12:59 AM EDT CBC AND DIFFERENTIAL STAT 11/27/2024 12:59 AM EDT COMPREHENSIVE METABOLIC PANEL STAT 11/27/2024 12:59 AM EDT POCT GLUCOSE BLOOD Routine 11/27/2024 12 :42 AM EDT LIPID PANEL Routine 06/03/2024 10:55 AM EDT Screening for cholesterol level BD BONE DENSITY DXA AXIAL SKELETON Routine 03/16/2024 10:23 AM EST Age-related osteoporosis without current pathological fracture CORKY SCREENING DIGITAL Routine 12/09/2022 1:57 PM EDT Encounter for screening mammogram for malignant neoplasm of breast HM HPV Routine 10/30/2022 HM HEPATITIS C SCREENING Routine 10/30/2022 HM HIV SCREENING Routine 10/30/2022 HM COLONOSCOPY Routine 01/08/2021 HEMOGLOBIN A1C Routine 01/08/2021 from Last 3 Months or Most Recently Relevant to Health Maintenance Results * XR Thoracic Spine 3 Views (01/26/2025 11:04 AM EST) Anatomical Region Laterality Modality Spine, T-spine Radiographic Mami ging 02/03/2025 5:51 PM EST Impressions 02/03/2025 5:52 PM EST Scoliosis and mild thoracic spondylosis. -------- FINAL REPORT -------- Dictated By: Phani Nieves Dictated Date: 02/03/2025 17:51 ET Assigned Physician: Phani Nieves Reviewed and Electronically Signed By: Phani Nieves Signed Date: 02/03/2025 17:52 ET Workstation ID: [id number] Transcribed By: Self Edit Transcribed Date: 02/03/2025 17:51 ET Narrative 02/03/2025 5:52 PM EST EXAM: XR THORACIC SPINE 3 VIEWS CLINICAL INDICATION: Mid back pain COMPARISON: None. TECHNIQUE: AP and lateral views of the thoracic spine were obtained. Additional swimmer's view was obtained to evaluate the cervicothoracic junction. FINDINGS: There is a mild levoscoliosis. No compression deformity or spondylolisthesis. There is spondylosis with loss of disc space height and endplate osteophyte formation. Bone mineralization appears within normal limits. Paraspinal soft tissues are unremarkable. Procedure Note Phani Nieves MD - 02/03/2025 EXAM: XR THORACIC SPINE 3 VIEWS CLINICAL INDICATION: Mid back pain COMPARISON: None. TECHNIQUE: AP and lateral views of the thoracic spine were obtained.Additional swimmer's view was obtained to evaluate the cervicothoracicjunction. FINDINGS: There is a mild levoscoliosis. No compression deformity orspondylolisthesis. There is spondylosis with loss of disc space heightand endplate osteophyte formation. Bone mineralization appears withinnormal limits. Paraspinal soft tissues are unremarkable. IMPRESSION: Scoliosis and mild thoracic spondylosis. -------- FINAL REPORT -------- Dictated By: Phani Nieves Dictated Date: 02/03/2025 17:51 ET Assigned Physician: Phani Nieves Reviewed and Electronically Signed By: Phani Nieves Signed Date: 02/03/2025 17:52 ET Workstation ID: [id number] Transcribed By: Self Edit Transcribed Date: 02/03/2025 17:51 ET us Gisel Garcia MD IMG XR PROCEDURES Final Result * XR UGI w Air Contrast (2025 10:58 AM EST) Anatomical Region Laterality Modality Body Radiographic Mami ging 2025 11:4 6 AM EST Impressions 2025 11:50 AM EST Normal double contrast upper GI examination. -------- FINAL REPORT -------- Dictated By: Desirae Sheppard Dictated Date: 2025 11:46 ET Assigned Physician: Manuel Ko Reviewed and Electronically Signed By: Manuel Ko Signed Date: 2025 11:50 ET Workstation ID: [id number] Transcribed By: Self Edit Transcribed Date: 2025 11:48 ET Resident/PA/DIESEL SERVICE JOURNEYMAN: Desirae Sheppard Narrative 2025 11:50 AM EST FINDINGS: Double contrast UGI performed. COMPARISON: Upper GI August 16, 2021 HISTORY: Patient is a 55-year-old female with history of gastroparesis. GERD. TRAUMA NURSE radiographs: Stunner Animal AP radiograph of the abdomen obtained. Bowel gas pattern is nonobstructive. Visualized lung bases are clear. Osseous structures are overall unremarkable. FINDINGS: Effervescent crystals were administered orally. Thick and thin barium was then administered orally under fluoroscopic control. Esophagus: Normal distensibility, motility and mucosal pattern. There is no evidence of obstruction or hiatal hernia. Stomach: Normal distensibility and motility. Prompt passage of contrast from the stomach into the duodenal bulb and sweep. No gastric mass or ulceration. Visualization of proximal small bowel is within normal limits. Gastroesophageal reflux: Not visualized DAP: 4.85 Gycm^2 Procedure Note Manuel Ko MD - 2025 FINDINGS: Double contrast UGI performed. COMPARISON: Upper GI August 16, 2021 HISTORY: Patient is a 55-year-old female with history of gastroparesis.GERD. TRAUMA NURSE radiographs: Stunner Animal AP radiograph of the abdomen obtained. Bowel gaspattern is nonobstructive. Visualized lung bases are clear. Osseousstructures are overall unremarkable. FINDINGS: Effervescent crystals were administered orally. Thick and thinbarium was then administered orally under fluoroscopic control. Esophagus: Normal distensibility, motility and mucosal pattern. There isno evidence of obstruction or hiatal hernia. Stomach: Normal distensibility and motility. Prompt passage of contrastfrom the stomach into the duodenal bulb and sweep. No gastric mass orulceration. Visualization of proximal small bowel is within normal limits. Gastroesophageal reflux: Not visualized DAP: 4.85 Gycm^2 IMPRESSION: Normal double contrast upper GI examination. -------- FINAL REPORT -------- Dictated By: Desirae Sheppard Dictated Date: 2025 11:46 ET Assigned Physician: Manuel Ko Reviewed and Electronically Signed By: Manuel Ko Signed Date: 2025 11:50 ET Workstation ID: [id number] Transcribed By: Self Edit Transcribed Date: 2025 11:48 ET Resident/PA/DIESEL SERVICE JOURNEYMAN: Desirae Sheppard Nadia Garcia MD IMG FLUOROSCOPY PROCEDURES Fin al Result * (ABNORMAL) POC Urine Auto W/O Micro (12/30/2024 11:25 AM EDT) Color UA POC Yellow Light Yellow, Yellow, Dark Yellow Appearance UA POC Clear Clear Glucose UA POC 4+(A) Negative, Trace mg/dL Bilirubin UA POC Negative Negative Ketones UA POC Negative Negative Specific Only UA POC <=1.005 Blood UA POC Negative Negative PH UA POC 8.0 Protein UA POC Trace(A) Negative mg/dL Urobilinogen UA POC 0.2 E.U./dL 0.2 E.U./dL, 1.0 E.U./dL, 8 , Unable to interpret due to interfering substances mg/dL Nitrite UA POC Negative Negative Leukocytes UA POC Negative Negative Urine Urine specimen obtained by clean catch procedure / Unknown 12/30/2024 11:25 AM EDT Jo GUPTA POINT OF CARE TEST ENTER/ EDIT ORDERABLES Final Result * (ABNORMAL) POC glucose manually resulted (12/30/2024 11:24 AM EDT) Glucose POC 385(A) 70 - 100 mg/dL Blood Capillary blood specimen / Unknown 12/30/2024 11:24 AM EDT Jo GUPTA POINT OF CARE TEST ENTER/ EDIT ORDERABLES Final Result * CT Lung Screening (12/27/2024 10:42 AM EDT) Anatomical Region Laterality Modality Chest Computed Tomogra phy 01/03/2025 5:51 PM EDT Impressions 01/03/2025 6:01 PM EDT No new suspicious mass or nodule. No suspicious interval change. LUNG RADS: Lung-RADS 2: BENIGN S Modifier (Significant or Potentially Significant Findings): None present No suspicious nonpulmonary findings. RECOMMENDATIONS: 12 month screening low dose CT -------- FINAL REPORT -------- Dictated By: Thee Sandoval Dictated Date: 01/03/2025 17:51 ET Assigned Physician: Thee Sandoval Reviewed and Electronically Signed By: Thee Sandoval Signed Date: 01/03/2025 18:01 ET Workstation ID: [id number] Transcribed By: Self Edit Transcribed Date: 01/03/2025 17:51 ET Narrative 01/03/2025 6:01 PM EDT EXAMINATION: CT CHEST WITHOUT CONTRAST LUNG CANCER SCREENING, LOW DOSE CLINICAL INFORMATION: Lung cancer screening. Former smoker. COMPARISON: Portions of previous 12/07/23 TECHNIQUE: Multidetector CT. Examination of the chest. Examination of the chest without IV contrast. Reformatting in the coronal and sagittal planes. Device: [employer] [place] DLP: 161 mGy-cm CTDI: 4.89 Dose optimization was performed including the use of low-dose iterative reconstruction technique with automatic exposure control based on patient size. Type of contrast: None Volume of IV contrast: None Volume of contrast discarded: 0 mL FINDINGS: LUNG: There are some secretions in the trachea and central airways. LUNG NODULES: There are no suspicious nodules or masses. OTHER PULMONARY: There are some scattered micronodules similar to previous. There is persistent but improved volume loss in the medial segment of the middle lobe. There is an unchanged linear opacity in the inferior lingula. There are a few peripheral reticular opacities which are likely fibrotic and are unchanged. There are some mild interstitial lung abnormalities but there is no honeycomb formation. There is moderate underlying centrilobular emphysema. MEDIASTINUM: There are no enlarged mediastinal or hilar lymph nodes. The esophageal wall appears somewhat thickened. CARDIAC: The heart is not enlarged. No pericardial fluid or thickening There are mild coronary calcifications. VASCULAR: There is no thoracic aortic aneurysm. The main pulmonary artery is normal caliber PLEURA: There is no pleural fluid or pneumothorax AXILLA/CHEST WALL: There are no new enlarged axillary lymph nodes. No chest wall mass demonstrated. VISUALIZED UPPER ABDOMEN: No suspicious abnormality on limited assessment of the visualized upper abdomen. MUSCULOSKELETAL: No suspicious focal bony lesion demonstrated. Areas of sclerosis suggests healing rib fractures. Procedure Note Thee Sandoval MD - 01/03/2025 EXAMINATION: CT CHEST WITHOUT CONTRAST LUNG CANCER SCREENING, LOW DOSE CLINICAL INFORMATION: Lung cancer screening. Former smoker. COMPARISON: Portions of previous 12/07/23 TECHNIQUE: Multidetector CT. Examination of the chest. Examination of the chest without IV contrast. Reformatting in the coronal and sagittal planes. Device: [employer] [place] DLP: 161 mGy-cm CTDI: 4.89 Dose optimization was performed including the use of low-dose iterativereconstruction technique with automatic exposure control based on patientsize. Type of contrast: None Volume of IV contrast: None Volume of contrast discarded: 0 mL FINDINGS: LUNG: There are some secretions in the trachea and central airways. LUNG NODULES: There are no suspicious nodules or masses. OTHER PULMONARY: There are some scattered micronodules similar toprevious. There is persistent but improved volume loss in the medial segment of themiddle lobe. There is an unchanged linear opacity in the inferiorlingula. There are a few peripheral reticular opacities which are likely fibroticand are unchanged. There are some mild interstitial lung abnormalities butthere is no honeycomb formation. There is moderate underlying centrilobular emphysema. MEDIASTINUM: There are no enlarged mediastinal or hilar lymph nodes. Theesophageal wall appears somewhat thickened. CARDIAC: The heart is not enlarged. No pericardial fluid or thickening There are mild coronary calcifications. VASCULAR: There is no thoracic aortic aneurysm. The main pulmonary arteryis normal caliber PLEURA: There is no pleural fluid or pneumothorax AXILLA/CHEST WALL: There are no new enlarged axillary lymph nodes. Nochest wall mass demonstrated. VISUALIZED UPPER ABDOMEN: No suspicious abnormality on limited assessmentof the visualized upper abdomen. MUSCULOSKELETAL: No suspicious focal bony lesion demonstrated. Areas ofsclerosis suggests healing rib fractures. IMPRESSION: No new suspicious mass or nodule. No suspicious interval change. LUNG RADS: Lung-RADS 2: BENIGN S Modifier (Significant or Potentially Significant Findings): Nonepresent No suspicious nonpulmonary findings. RECOMMENDATIONS: 12 month screening low dose CT -------- FINAL REPORT -------- Dictated By: Thee Sandoval Dictated Date: 01/03/2025 17:51 ET Assigned Physician: Thee Sandoval Reviewed and Electronically Signed By: Thee Sandoval Signed Date: 01/03/2025 18:01 ET Workstation ID: [id number] Transcribed By: Self Edit Transcribed Date: 01/03/2025 17:51 ET us Maya Hill MD IMG CT PROCEDURES Final Result * (ABNORMAL) POCT Glucose, blood (11/28/2024 10:02 AM EDT) Only the most recent of19 resultswithin the time period is included. [facility] Glucose POCT 113(H) 70 - 100 mg/dL 11/28/2024 10:03 AM EDT [facility] Blood Capillary blood specimen / Unknown 11/28/2024 10:02 AM EDT 11/28/2024 10:04 AM EDT Maury Curran MD LAB POINT O F CARE TEST DOCKED DEVICE UNSOLICITED RESULTS Final Result [facility] [address] [place] [address], [place] [phone] * Lavender tube (11/28/2024 5:34 AM EDT) [facility] Extra Tube Hold for add-ons. 11/28/2024 8:01 AM [facility] Comment:Auto resulted. Blood Venous blood specimen / Unknown Venipuncture / Unknown 11/28/2024 5:34 AM EDT 11/28/2024 6:16 AM EDT Gomez Zapata MD LAB BLOOD ORDERABLES F inal Result [facility] [address] [place] [address], [place] [phone] * (ABNORMAL) Basic metabolic panel (11/28/2024 5:34 AM EDT) Only the most recent of2 resultswithin the time period is included. [facility] Sodium 141 133 - 145 mmol/L LAB CHEMISTRY METHOD 11/28/2024 7:09 AM [facility] Potassium 4.3 3.5 - 5.5 mmol/L LAB CHEMISTRY METHOD 11/28/2024 7:09 AM [facility] Chloride 104 96 - 110 mmol/L LAB CHEMISTRY METHOD 11/28/2024 7:09 AM [facility] CO2 34(H) 21 - 32 mmol/L LAB CHEMISTRY METHOD 11/28/2024 7:09 AM [facility] Anion Gap 3 3 - 11 LAB CHEMISTRY METHOD 11/28/2024 7:09 AM [facility] Glucose 237(H) 70 - 100 mg/dL LAB CHEMISTRY METHOD 11/28/2024 7:09 AM [facility] BUN 16 5 - 25 mg/dL LAB CHEMISTRY METHOD 11/28/2024 7:09 AM [facility] Creatinine 0.94 0.50 - 1.10 mg/dL LAB CHEMISTRY METHOD 11/28/2024 7:09 AM [facility] eGFR 73 >=60 mL/min/1. 73m2 LAB CHEMISTRY METHOD 11/28/2024 7:09 AM EDT [facility] Comment:Calculation based on the Chronic Kidney Disease Epidemiology Collaboration (CKD-EPI) equation refit without adjustment for race. BUN/Creatinine Ratio 17.0 LAB CHEMISTRY METHOD 11/28/2024 7:09 AM EDT [facility] Calcium 9.2 8.5 - 10.5 mg/dL LAB CHEMISTRY METHOD 11/28/2024 7:09 AM EDT [facility] Blood Venous blood specimen / Unknown Venipuncture / Unknown 11/28/2024 5:34 AM EDT 11/28/2024 6:16 AM EDT us Paula Novak MD LAB BLOOD ORDERABLES Final Resul t [facility] [address] [place] [address], * (ABNORMAL) CBC auto differential (11/27/2024 5:31 AM EDT) Only the most recent of2 resultswithin the time period is included. WBC 6.8 4.8 - 10.8 K/mcL LAB HEMETOLOGY METHOD 11/27/2024 5:43 AM [facility] RBC 3.30(L) 3.80 - 4.80 M/mcL LAB HEMETOLOGY METHOD 11/27/2024 5:43 AM EDT [facility] Hemoglobin 10.2(L) 11.5 - 16.0 g/dL LAB HEMETOLOGY METHOD [facility] Hematocrit 29.8(L) 35.0 - 47.0 % LAB HEMETOLOGY METHOD 11/27/2024 5:43 AM EDT [facility] MCV 91.1 79.0 - 98.0 FL LAB HEMETOLOGY METHOD 11/27/2024 5:43 AM EDT [facility] MCH 31.2 27.0 - 32.0 pcg LAB HEMETOLOGY METHOD 11/27/2024 5:43 AM [facility] MCHC 34.2 32.0 - 37.0 g/dL LAB HEMETOLOGY METHOD 11/27/2024 5:43 AM [facility] RDW 13.5 11.0 - 15.0 % LAB HEMETOLOGY METHOD 11/27/2024 5:43 AM [facility] Platelets 154 130 - 400 K/mcL LAB HEMETOLOGY METHOD 11/27/2024 5:43 AM [facility] MPV 11.1(H) 7.0 - 11.0 FL LAB HEMETOLOGY METHOD 11/27/2024 5:43 AM [facility] NRBC 0.0 <1.0 % LAB HEMETOLOGY METHOD 11/27/2024 5:43 AM [facility] NRBC Absolute 0.00 <0.10 K/mcL LAB HEMETOLOGY METHOD 11/27/2024 5:43 AM [facility] Neutrophils Relative 46.7 % LAB HEMETOLOGY METHOD 11/27/2024 5:43 AM [facility] Lymphocytes Relative 47.1 % LAB HEMETOLOGY METHOD 11/27/2024 5:43 AM [facility] Monocytes Relative 4.3 % LAB HEMETOLOGY METHOD 11/27/2024 5:43 AM [facility] Eosinophils Relative 1.3 % LAB HEMETOLOGY METHOD 11/27/2024 5:43 AM [facility] Basophils Relative 0.3 % LAB HEMETOLOGY METHOD 11/27/2024 5:43 AM [facility] Immature Granulocytes Relative 0.3 % LAB HEMETOLOGY METHOD 11/27/2024 5:43 AM EDT [facility] Neutrophils Absolute 3.18 1.50 - 7.00 K/mcL LAB HEMETOLOGY METHOD 11/27/2024 5:43 AM EDT [facility] Lymphocytes Absolute 3.20 1.00 - 5.00 K/mcL LAB HEMETOLOGY METHOD 11/27/2024 5:43 AM EDT [facility] Monocytes Absolute 0.29 0.20 - 1.00 K/mcL LAB HEMETOLOGY METHOD 11/27/2024 5:43 AM EDT [facility] Eosinophils Absolute 0.09 0.00 - 0.50 K/[facility] LAB HEMETOLOGY METHOD 11/27/2024 5:43 AM EDT [facility] Basophils Absolute 0.02 0.00 - 0.20 K/mcL LAB HEMETOLOGY METHOD 11/27/2024 5:43 AM EDT [facility] Immature Granulocytes Absolute 0.02 0.00 - 0.03 K/[facility] LAB HEMETOLOGY METHOD 11/27/2024 5:43 AM EDT [facility] Blood Venous blood specimen / Unknown Venipuncture / Unknown 11/27/2024 5:31 AM EDT 11/27/2024 5:35 AM EDT Josephine GUPTA LAB BLOOD ORDERABLES Fi nal Result [facility] [address] [place] [address], * (ABNORMAL) Comprehensive Metabolic Panel (CMP) (11/27/2024 12:59 AM EDT) Sodium 138 133 - 145 mmol/L LAB CHEMISTRY METHOD 11/27/2024 2:09 AM EDT [facility] Potassium 3.7 3.5 - 5.5 mmol/L LAB CHEMISTRY METHOD 11/27/2024 2:09 AM [facility] Chloride 104 96 - 110 mmol/L LAB CHEMISTRY METHOD 11/27/2024 2:09 AM [facility] CO2 29 21 - 32 mmol/L LAB CHEMISTRY METHOD 11/27/2024 2:09 AM [facility] Anion Gap 5 3 - 11 LAB CHEMISTRY METHOD 11/27/2024 2:09 AM [facility] Glucose 162(H) 70 - 100 mg/dL LAB CHEMISTRY METHOD 11/27/2024 2:09 AM [facility] BUN 21 5 - 25 mg/dL LAB CHEMISTRY METHOD 11/27/2024 2:09 AM [facility] Creatinine 0.88 0.50 - 1.10 mg/dL LAB CHEMISTRY METHOD 11/27/2024 2:09 AM [facility] eGFR 79 >=60 mL/min/1. 73m2 LAB CHEMISTRY METHOD 11/27/2024 2:09 AM [facility] Comment:Calculation based on the Chronic Kidney Disease Epidemiology Collaboration (CKD-EPI) equation refit without adjustment for race. BUN/Creatinine Ratio 23.9 LAB CHEMISTRY METHOD 11/27/2024 2:09 AM [facility] Calcium 8.8 8.5 - 10.5 mg/dL LAB CHEMISTRY METHOD 11/27/2024 2:09 AM [facility] AST (SGOT) 27 10 - 42 unit/L LAB CHEMISTRY METHOD 11/27/2024 2:09 AM [facility] ALT (SGPT) 35 10 - 60 unit/L LAB CHEMISTRY METHOD 11/27/2024 2:09 AM [facility] Alkaline Phosphatase 93 42 - 121 unit/L LAB CHEMISTRY METHOD 11/27/2024 2:09 AM [facility] Total Protein 6.5 6.0 - 8.0 g/dL LAB CHEMISTRY METHOD 11/27/2024 2:09 AM EDT [facility] Albumin 3.8 3.2 - 5.0 g/dL LAB CHEMISTRY METHOD 11/27/2024 2:09 AM EDT [facility] Total Bilirubin 0.3 0.0 - 1.4 mg/dL LAB CHEMISTRY METHOD 11/27/2024 2:09 AM EDT [facility] Blood Venous blood specimen / Unknown Venipuncture / Unknown 11/27/2024 12:59 AM EDT 11/27/2024 1:18 AM EDT us Yin GUPTA LAB BLOOD ORDERABLES Fin al Result [facility] [address] [place] [address], [place] [phone] * (ABNORMAL) Lipid panel (06/03/2024 10:55 AM EDT) Cholesterol 114 0 - 200 mg/dL LAB CHEMISTRY METHOD 06/03/2024 2:31 PM EDT [facility] Triglycerides 123 <150 mg/dL LAB CHEMISTRY METHOD 06/03/2024 2:31 PM EDT [facility] HDL 45 37 - 92 mg/dL LAB CHEMISTRY METHOD 06/03/2024 2:31 PM EDT [facility] LDL Calculated 44(L) 50 - 130 mg/dL LAB CHEMISTRY METHOD 06/03/2024 2:31 PM EDT [facility] VLDL Cholesterol Bijan 24.6 mg/dL LAB CHEMISTRY METHOD 06/03/2024 2:31 PM EDT [facility] Comment:No established refer ence range. Blood Venous blood specimen / Unknown Venipuncture / Unknown 06/03/2024 10:55 AM EDT 06/03/2024 10:55 AM EDT us Jo GUPTA LAB BLOOD ORDERABLES Salud l Result Performing Organization Address [facility]/State/ZIP Co de Phone Number [facility] ([facility]) [facility] [address] [place] [address], [place] [phone] * BD Bone Density DXA Axial Skeleton (03/16/2024 10:23 AM EST) Anatomical Region Laterality Modality Wrist, Hip, L-spine Bone Densito metry 03/16/2024 10:2 2 AM EST Impressions 03/16/2024 10:26 AM EST 1. Osteoporosis. 2. FRAX analysis yields a 10-year probability of major osteoporotic fracture of 25.8% and a 10-year probability of hip fracture of 9.3%. Code 51394 -------- FINAL REPORT -------- Dictated By: Manuel Ko Dictated Date: 03/16/2024 10:22 ET Assigned Physician: Manuel Ko Reviewed and Electronically Signed By: Manuel Ko Signed Date: 03/16/2024 10:26 ET Workstation ID: [id number] Transcribed By: Self Edit Transcribed Date: 03/16/2024 10:22 ET Narrative 03/16/2024 10:26 AM EST HISTORY: The patient is a 54-year-old postmenopausal female on chronic glucocorticoid therapy, with clinical concern for metabolic bone disease. The patient has a history of left hip fracture. FINDINGS: Dual energy x-ray absorptiometry of the lumbar spine and right femur is performed. The mean bone mineral density at L1-L4 (with the exclusion of L3) is 1.067 gm/cm2 which is 91% of that of young normals and 97% of that of age matched controls. This yields a T-score of -0.9 and a Z-score of -0.3 and there is therefore no evidence of osteoporosis or osteopenia here. The mean bone mineral density of the right femur is 0.692 gm/cm2 which is 69% of that of young normals and 74% of that of age matched controls. This yields a T-score of -2.5 and a Z-score of -1.9 which is diagnostic of osteoporosis. The T-score of the right femoral neck is -2.9 which is diagnostic of osteoporosis. Procedure Note Manuel Ko MD - 03/16/2024 HISTORY: The patient is a 54-year-old postmenopausal female on chronicglucocorticoid therapy, with clinical concern for metabolic bone disease.The patient has a history of left hip fracture. FINDINGS: Dual energy x-ray absorptiometry of the lumbar spine and rightfemur is performed. The mean bone mineral density at L1-L4 (with theexclusion of L3) is 1.067 gm/cm2 which is 91% of that of young normals and97% of that of age matched controls. This yields a T-score of -0.9 and aZ-score of -0.3 and there is therefore no evidence of osteoporosis orosteopenia here. The mean bone mineral density of the right femur is 0.692 gm/cm2 which is69% of that of young normals and 74% of that of age matched controls.This yields a T-score of -2.5 and a Z-score of -1.9 which is diagnostic ofosteoporosis. The T-score of the right femoral neck is -2.9 which isdiagnostic of osteoporosis. IMPRESSION: 1. Osteoporosis. 2. FRAX analysis yields a 10-year probability of major osteoporoticfracture of 25.8% and a 10-year probability of hip fracture of 9.3%. Code 55901 -------- FINAL REPORT -------- Dictated By: Manuel Ko Dictated Date: 03/16/2024 10:22 ET Assigned Physician: Manuel Ko Reviewed and Electronically Signed By: Manuel Ko Signed Date: 03/16/2024 10:26 ET Workstation ID: [id number] Transcribed By: Self Edit Transcribed Date: 03/16/2024 10:22 ET us Kelby Hyde MD IMG DXA PROCEDURES F inal Result * CORKY SCREENING DIGITAL (12/09/2022 1:57 PM EDT) Anatomical Region Laterality Modality Mammography 11/07/2022 12:2 2 PM EDT Narrative 12/09/2022 1:57 PM EDT [facility] Diagnostic Imaging Department [address] [place] [address] Patient: KELBY GARSIA /Age/Sex: 1970 - 52 - F Unit#: [id number] Location/Status: SPDIMAM/REG CLI Mnemonic/Ordering Site: [facility] Ordering Physician: SKIP COPELAND CNM Corky Screening Digital - 11/07/22 - 1309 Report Status:Signed ADDENDUM Addendum: The patient was a no-show for her callback appointment. She has not responded to multiple additional attempts to reschedule the callback appointment, including telephone calls and a certified letter. [place] Addendum Dictated By: ANGIE OLMSTEAD MD Addendum Esigned by: ANGIE OLMSTEAD MD Dictated: 12/09/2205/29/1349 Signed:12/09/22 135 ORIGINAL REPORT EXAM: [facility] Screening Digital EXAM DATE AND TIME: 11/07/2022 1:10 PM HISTORY: Screening. Excisional biopsy of the right breast in 2020 yielding benign pathology. COMPARISON: Right breast Magseed localization procedure to 321, 01/02/20, 12/12/19, 05/18/19 TECHNIQUE: Bilateral digital breast tomosynthesis was performed in the CC and MLO projections. Computer aided detection with [employer] 3D 3.1 was employed. TISSUE DENSITY: c. The breasts are heterogeneously dense, which may obscure small masses. FINDINGS: Marked focal skin thickening is seen along the anterior aspect of the right breast, new from the previous studies. The suspected surgical scar, in the posterolateral right breast, is only partially included in the CC view. Mild asymmetry in the posterior MLO view may also represent surgical scar. MLO spot compression tomosynthesis views and full lateral and exaggerated CC tomosynthesis views of the right breast are recommended. No mass or asymmetry is seen in the left breast. No grouped microcalcifications are seen in either breast. The vascularity is unremarkable. IMPRESSION: 1. Probable surgical scar in the posterolateral right breast, for which additional views are recommended. 2. Marked skin thickening along the anterior aspect of the right breast, new from previous studies. Per discussion with the technologist, the patient, an insulin-dependent diabetic for many years, places her insulin pump on the breasts. She noted the skin of both breasts to be very hard and tough. The skin thickening may be related to this, however, targeted ultrasound of the right breast is recommended when the patient returns for her additional views. 3. No mammographic evidence of malignancy is seen in the left breast. BI-RADS: Category 0: Incomplete - Need Additional Imaging Evaluation RECOMMENDATION(S): 1: Special mammographic view(s) needed RIGHT 2: Ultrasound RIGHT Dictating Physician: ANGIE OLMSTEAD MD Electronically Signed by: ANGIE OLMSTEAD MD Dic Date/Time: 11/11/22817 Sign date/Time: 11/11/22824 Procedure Note Angie Olmstead MD - 04/14/2023 [facility] Diagnostic Imaging Department [address] [place] [address] Patient: JUAN DAVID GARSIABERLY Prince /Age/Sex: 1970 - 52 - F Unit#: [id number] Location/Status: [facility]/REG CLI Mnemonic/Ordering Site: [facility] Ordering Physician: SKIP COPELAND CNM Corky Screening Digital - 11/07/22 - 1309 Report Status:Signed ADDENDUM Addendum: The patient was a no-show for her callback appointment. She has notresponded to multiple additional attempts to reschedule the callback appointment, including telephone calls and a certified letter. NC Addendum Dictated By: ANGIE OLMSTEAD MD Addendum Esigned by: ANGIE OLMSTEAD MD Dictated: 12/09/2205/29/1349 Signed:12/09/221356 ORIGINAL REPORT EXAM: Corky Screening Digital EXAM DATE AND TIME: 11/07/2022 1:10 PM HISTORY: Screening. Excisional biopsy of the right breast in 2020yielding benign pathology. COMPARISON: Right breast Magseed localization procedure to [facility],01/02/20, 12/12/19, 05/18/19 TECHNIQUE: Bilateral digital breast tomosynthesis was performed in the CCand MLO projections. Computer aided detection with [employer] 3D 3.1was employed. TISSUE DENSITY: c. The breasts are heterogeneously dense, which mayobscure small masses. FINDINGS: Marked focal skin thickening is seen along the anterior aspect of theright breast, new from the previous studies. The suspected surgical scar, in the posterolateral right breast, is only partially included in the CC view. Mild asymmetry in the posterior MLOview may also represent surgical scar. MLO spot compression tomosynthesis views andfull lateral and exaggerated CC tomosynthesis views of the right breast are recommended. No mass or asymmetry is seen in the left breast. No groupedmicrocalcifications are seen in either breast. The vascularity is unremarkable. IMPRESSION: 1. Probable surgical scar in the posterolateral right breast, for which additional views are recommended. 2. Marked skin thickening along the anterior aspect of the right breast,new from previous studies. Per discussion with the technologist, the patient,an insulin-dependent diabetic for many years, places her insulin pump onthe breasts. She noted the skin of both breasts to be very hard and tough. Theskin thickening may be related to this, however, targeted ultrasound of theright breast is recommended when the patient returns for her additional views. 3. No mammographic evidence of malignancy is seen in the left breast. BI-RADS: Category 0: Incomplete - Need Additional Imaging Evaluation RECOMMENDATION(S): 1: Special mammographic view(s) needed RIGHT 2: Ultrasound RIGHT Dictating Physician: ANGIE OLMSTEAD MD Electronically Signed by: ANGIE OLMSTEAD MD Dic Date/Time: 11/11/22817 Sign date/Time: 11/11/22824 Result [facility] Skip Copeland CNM IMG BI PROCEDURES Final Res ult * Cervical Cancer Screening: HPV (10/30/2022) [facility] Cervical Cancer Screening: HPV Positive, Abstracted Result [facility] Final Result * HIV Screening (10/30/2022) [facility] HIV Screening Abstracted Result [facility] Final Result * Hepatitis C Screening (10/30/2022) [facility] Hepatitis C Screening Abstracted Result [facility] Final Result * Colonoscopy (01/08/2021) [facility] Colonoscopy No Interpretation , Abstracted Anatomical Region Laterality Modality Other Result [facility] Final Result * (ABNORMAL) Hemoglobin A1c (01/08/2021) [facility] Hemoglobin A1C 7.5(A) <=6.5 % Blood Venous blood specimen / Unknown Result [facility] Provider LAB BLOOD ORDERABLES Salud l Result from Last 3 Months or Most Recently Relevant to Health Maintenance Additional Health Concerns Active Problems Noted Date Diagnosed Date Autogenerated Problem 12/06/2024 Insurance [facility] MEDICA[facility] - [place] [employer] MEDICARE Advance Directives * Full Code - Default (Latest Code Status on File) Date Activated Date Inactivated Comments 11/27/2024 5:11 AM 11/28/2024 12:48 PM This is ord er is used when code status has not been discussed with the patient, or code status is otherwise unknown/unconfirmed To update the patient's code status, place a code status order. Do not modify or discontinue any currently active code status orders. Care Teams Airframe And Power Plant Mechanic Relationship Specialty Start Date End Date Jo Alcocer PA [address] [place] [address] PCP - General Family Medicine 04/14/24
--- OUTSIDE RECORDS SUMMARY | 2025-02-24 04:14 | XMS_ITS | Encounter Summary ---
Author Organization [employer] Address [address] [place] [address] Care Team Providers Care Patient Sitter Name Role Phone Jo Alcocer Primary Care Provider [phone] Reason for Visit * Reason Onset Date Comments Diabetes 02/20/2025 Pump Upload Encounter Details Date Type Department Care Team (Late st Contact Info) Description 02/20/2025 Telephone [facility] [address] [place] [phone] Bogdan Sapp, RN [address] [place] [address] Social History Tobacco Use Types Packs/Day Years [...] PM EST documented as of this encounter Progress Notes * Bogdan Sapp RN - 02/20/2025 10:57 AM EST [employer] pump uploaded to [employer]. Message sent to Dr. Buenrostro. documented in this encounter Plan of Treatment Upcoming Encounters Date Type Department Care Team (Late st Contact Info) Description 03/21/2025 10:30 AM EST Office Visit Rehabilitation Medicine - [place] [address] [place] [phone] Gisel Garcia MD [address] [place] [address] 04/03/2025 11:00 AM EST Office Visit Internal Medicine - [place] [address] [place] [phone] Jo Alcocer PA [address] [facility] [address] [place] [address] 04/13/2025 11:00 AM EST Appointment [facility] Endoscopy [address] [place] [phone] Levon Cuevas MD 299 [facility] [address] [place] [address] 05/05/2025 11:40 AM EST Office Visit [facility] - [address] [place] [phone] Priyanka Buenrostro MD [address] [place] [address] 06/29/2025 11:25 AM EDT Office Visit Pulmonology - [place] 175 [facility] 200 [place] [phone] Tanya Pineda NP [address] [place] [phone] documented as of this encounter Goals Goal Patient Goal Type Associated Problems Recent Progress Patient-Stated? Author Autogenera juanito Goal Care Plan Autogenerated Problem No Janice Irby documented as of this encounter Visit Diagnoses Not on filedocumented in this encounter Additional Health Concerns Active Problems Noted Date Diagnosed Date Autogenerated Problem 12/06/2024 Assessment Noted Time PHQ-9 Depression Total Score: 21 025 10:50 AM EDT A fall risk assessment has been complete d for the patient 09/08/2024 10:45 AM EDT documented as of this encounter Care Teams Patient Sitter Relationship Specialty Start Date End Date Jo Alcocer PA [address] [place] [address] PCP - General Family Medicine 04/14/24 documented as of this encounter
--- OUTSIDE RECORDS SUMMARY | 2025-02-24 04:14 | XMS_ITS | Encounter Summary ---
Author Organization [employer] Address [address] [place] [address] Care Team Providers Care Theatrical Trouper Name Role Phone Jo Alcocer Primary Care Provider [phone] [phone] Encounter Details Date Type Department Care Team (Late st Contact Info) Description 2025 Results Follow-Up Gastroenterology - [address] [place] [address] [facility] [address] [place] [phone] Nadia Garcia MD [address] [place] [address] [place] [address] Social History Tobacco Use Types Packs/Day Years [...] as of this encounter Progress Notes * Nadia Garcia MD - 2025 12:04 PM EST Jus Garcia Upper GI series was normal. No esophagus abnormalities. No strictures. Normal stomach. Looks good! Dr. Garcia documented in this encounter Plan of Treatment Upcoming Encounters Date Type Department Care Team ([facility] st Contact Info) Description 03/21/2025 10:30 AM EST Office Visit Rehabilitation Medicine - [place] [address] [place] [address] Gisel Garcia MD [address] [place] [address] 04/03/2025 11:00 AM EST Office Visit Internal Medicine - [place] [address] [place] [phone] Jo Alcocer PA [address] [place] [address] 04/13/2025 11:00 AM EST Appointment [facility] Endoscopy [address] [place] [phone] Levon Cuevas MD 299 [facility] 419 [place] [address] 05/05/2025 11:40 AM EST Office Visit [facility] - [place] 47 [facility] [place] [phone] Priyanka Buenrostro MD [address] [place] [address] 06/29/2025 11:25 AM EDT Office Visit Pulmonology - [place] 175 [facility] 200 [place] [phone] Tanya Pineda NP [address] [place] [address] documented as of this encounter [...] documented as of this encounter Care Teams Theatrical Trouper Relationship Specialty Start Date End Date Jo Alcocer PA [address] [place] [address] PCP - General Family Medicine 04/14/24 documented as of this encounter
--- OUTSIDE RECORDS SUMMARY | 2025-02-24 04:14 | XMS_ITS | Encounter Summary ---
Author Organization [employer] Address [address] [place] [address] Care Team Providers Care Metal Sprayer Production Name Role Phone Jo Alcocer Primary Care Provider [phone] [phone] Encounter Details Date Type Department Care Team (Late st Contact Info) Description 02/23/2025 Telephone Internal Medicine - [place] [address] [place] [phone] Dilia Christopher MA Social History Tobacco Use Types Packs/Day Years [...] as of this encounter Progress Notes * Dilia Christopher MA - 02/23/2025 2:54 PM EST Rebeca from [employer] called to let us know that Radha went to [facility] but they did nothing. Her legs are swollen even more. Rebeca did recommend Radha to go back to the ER but with [facility]. Shortly after getting off the phone with Rebeca Garcia called. Radha explains that her sugars are not controlled, legs aretwice the size as they were yesterday and she possible has cellulitis. She states that [facility] did nothing even leaving the IV in her arm in which her daughter had to remove for her. I suggested [place] as Rebeca had suggested but Radha says that they do not have an driver license examiner. She thinks she will go to [facility] and she will be calling 911 to get in there quicker. documented in this encounter Plan of Treatment Upcoming Encounters Date Type Department Care Team (Late st Contact Info) Description 03/21/2025 10:30 AM EST Office Visit Rehabilitation Medicine - [place] [address] [place] [address] Gisel Garcia MD [address] [place] [address] 04/03/2025 11:00 AM EST Office Visit Internal Medicine - [place] [address] [place] [address] Jo Alcocer PA [address] [place] [address] 04/13/2025 11:00 AM EST Appointment [facility] Endoscopy [address] [place] [phone] Levon Cuevas MD [address] [address] 05/05/2025 11:40 AM EST [facility] - [address] [place] [phone] Priyanka Buenrostro MD [address] [place] [address] 06/29/2025 11:25 AM EDT Office Visit Pulmonology - [place] [address] [facility] [address] [place] [address] Tanya Pineda NP [address] [place] [phone] documented as of this encounter Goals Goal [...] documented as of this encounter Care Teams Metal Sprayer Production Relationship Specialty Start Date End Date Jo Alcocer PA [address] [place] [address] PCP - General Family Medicine 04/14/24 documented as of this encounter
--- OUTSIDE RECORDS SUMMARY | 2025-02-24 04:15 | XMS_ITS | Clinical Summary ---
Author Organization [facility] Prior to 08/06/[address] [place] [address] Care Team Providers Care Sample Hand Name Role Phone Jennifer Trinidad MD Primary Care Provider [phone] [phone] Allergies No known active allergies Medications Medication Sig Dispensed Refills Start Date End Date Status furosemide (LASIX) 40 MG tablet Take 1 tablet (40 mg total) by mouth 2 (two) times a day. 0 Active ferrous sulfate 325 (65 FE) MG tablet Take 1 tablet (325 mg total) by mouth every morning with breakfast. 0 Active Fluticasone Furoate-Vilanterol (Breo Ellipta) 200-25 MCG/ACT AEPB Inhale into the lungs. 0 Active pregabalin (Lyrica) 300 MG capsule Take 1 capsule (300 mg total) by mouth 2 (two) times a day. 0 Active promethazine (PHENERGAN) suppository [address] 1 suppository (25 mg total) rectally every 6 (six) hours as needed for nausea. 0 Active pravastatin (PRAVACHOL) tablet 40 mg Take 1 tablet (40 mg total) by mouth daily. 0 Active varenicline (CHANTIX) 1 MG tablet Take 1 tablet (1 mg total) by mouth 2 (two) times a day. Take with full glass of water. 0 Active METHADONE HCL PO Take 72 mL by mouth daily. 0 Active Family History Medical History Relation Name Comments Cancer Brother Cancer Maternal Aunt Cancer Maternal Grandmother Cancer Paternal Grandmother Relation Name Status Comments Brother Maternal Aunt Maternal Grandmother Paternal Grandmother Social History Tobacco Use Types Packs/Day Years Used Date Smoking Tobacco: Former Cigarettes Q uit: 2021 Smokeless Tobacco: Never Tobacco Cessation:Counseling Given: Not Answered Alcohol Use Standard Drinks/Week Comments Not Currently 0 (1 standard drink = 0.6 oz pur e alcohol) Sex and Gender Information Value Date Recorded Sex Assigned at Female 06/29/2023 3:49 PM EDT Gender Identity Not on file Sexual Orientation Not on file Job Start Date Occupation Industry Not on file Not on file Not on file Last Filed Vital Signs Vital Sign Reading Time Taken Comments Blood Pressure 126/57 08/20/2023 1:40 PM EDT Pulse 99 08/20/2023 1:40 PM EDT Temperature 36.9 C (98.4 F) 08/20/2023 1:40 PM EDT Respiratory Rate - - Oxygen Saturation 96% 08/20/2023 1:40 PM EDT Inhaled Oxygen Concentration - - Weight 81.4 kg (179 lb 6.4 oz) 08/20/2023 1:40 P M EDT Height 165.1 cm (5' 5 ) 08/20/2023 1:40 PM EDT Body Mass Index 29.85 08/20/2023 1:40 PM EDT Plan of Treatment Health Maintenance Due Date Last Done Comments Hepatitis B Vaccines (1 of 3 - 3-dose series) 1970 Hepatitis C Screening 1970 Depression Screening 1984 Preventative Health Evaluation 01/22/1990 Cervical Cancer Screening (Pap Smear) 01/22/1993 Colon Cancer Screening (Colonoscopy) 01/22/2017 Breast Cancer Screening (Mammogram) 01/22/2022 Shingrix-Zoster Vaccine (2 of 2) 09/09/2022 07/15/2022 COVID-19 Vaccine ( season) 2024 03/14/2021, 01/31/2021, 07/31/2020, Additional history exists Influenza Vaccine (#1) 2024 , 04/11/2021, 11/19/2018, Additional history exists DTap / Tdap / Td (3 - Td or Tdap) 12/20/2026 12/20/2016, 01/12/2012 Pneumococcal Vaccine Aged Out 11/19/2018, 11/23/19 10 No longer eligible based on patient's age to complete this topic RSV Ped < 20 months Aged Out No longe r eligible based on patient's age to complete this topic Care Teams Sample Hand Relationship Specialty Start Date End Date Jennifer Trinidad MD [address] [place] [address] PCP - General Internal Medicine 06/29/23
[2025-02-24 05:33] VITALS: BP 134/66; PULSE 76; RESP 18; TEMP 36.7; O2SAT 98
== END 2025-02-24 05:43 | disposition home or self-care (01) ==
PROVIDERS: Physician Assistant; Emergency Provider Emergency Medicine
DX: R60.0 Localized edema (principal); R07.89 Other chest pain; I50.9 Heart failure, unspecified; I34.0 Nonrheumatic mitral (valve) insufficiency; Z79.899 Other long term (current) drug therapy
CPT/HCPCS: 36415; 80053; 83880; 84484; 85025; 93005; 96374; 99284; J1938

== ENCOUNTER → 2025-02-24 03:14 | Outpatient (BNV) | payer MEDICARE, BC, MEDICAID, SELFPAY | PROVIDERS: Emergency Provider Emergency Medicine; Visit Provider Internal Medicine Cardiovascular Disease | DX: R60.9 Edema, unspecified (principal) | CPT/HCPCS: 93010 ==